=== PATIENT | female | born 1970 | race African-American/Black ===

== ENCOUNTER 2016-11-14 05:52 | Day surgery (SDC) | payer OTHER ==
--- NOTE | 2016-10-31 10:47 | EKG REPORT ---
SEVERITY:- OTHERWISE NORMAL ECG - SINUS RHYTHM LEFT AXIS DEVIATION : Confirmed by: Sasha Vazquez 31-Oct-2016 10:46:42
[2016-10-31 12:17] LABS: HEMATOCRIT 39.3 % (36.0-47.0); HGB HCT DIFFERENCE -0.3; MEAN CORPUSCULAR HEMOGLOBIN 28.2 pg (27.0-33.4); MEAN CORPUSCULAR HGB CONC 33.1 g/dL (32.0-36.0); MEAN CORPUSCULAR VOLUME 85 fl (80-97); RED BLOOD COUNT 4.62 10^6/uL (3.72-5.28); RED CELL DISTRIBUTION WIDTH 14.4 % (11.5-14.0); WHITE BLOOD COUNT 7.6 10^3/uL (4.0-10.5)
[2016-10-31 12:32] LABS: ANION GAP 10 (5-19); BLOOD UREA NITROGEN 11 mg/dL (7-20); CALCIUM 9.5 mg/dL (8.4-10.2); CARBON DIOXIDE 26 mmol/L (22-30); CHLORIDE 106 mmol/L (98-107); CREATININE RESULT 0.74 mg/dL (0.52-1.25); GLUCOSE 69 mg/dL (75-110); POTASSIUM 4.6 mmol/L (3.6-5.0); SODIUM 142.3 mmol/L (137-145)
[~2016-11-14 05:52] MED LIST: CEFAZOLIN 1 GM/D5W RTU 1 GM/50 ML RTUPB IV PRN; CEFAZOLIN SODIUM 1 GM in DEXTROSE 5%-WATER 50 ML IV PRN; DEXTROSE 5%-1/2 NORMAL SALINE 1,000 ML IV PRN
[2016-11-14] MEDS ORDERED: BACITRACIN INJ 50,000 UNIT VIAL ONE (06:38)
[2016-11-14] MEDS ORDERED: LIDOCAINE 0.5% INJ-PF (5 MG/ML) 50 ML SDV ONE (06:38)
[2016-11-14] MEDS ORDERED: BUPIVACAINE HCL 0.25 % INJ/PF (2.5 MG/1 ML) 30 ML VIAL ONE (06:38)
[2016-11-14] MEDS ORDERED: ALBUTEROL SULFATE 0.083% NEB 2.5 MG/3 ML AMPUL NEB ONE (06:39)
[2016-11-14] MEDS ORDERED: FENTANYL CITRATE INJ/PF 250 MCG/5 ML AMPULE ONE (07:49)
[2016-11-14] MEDS ORDERED: MIDAZOLAM 2 MG/2 ML INJ ONE (07:49)
[2016-11-14] MEDS ORDERED: MORPHINE SULFATE 10 MG/ML INJ ONE (07:50)
[2016-11-14] MEDS ORDERED: PROPOFOL INJ 200 MG/20 ML VIAL IV ONE (07:50)
[2016-11-14] MEDS ORDERED: DIPHENHYDRAMINE HCL 50 MG/ML VIAL IV PRN (08:58)
[2016-11-14] MEDS ORDERED: OXYCODONE-ACETAMINOPHEN 5-325 MG TABLET PO PRN ×2 (08:58)
[2016-11-14] MEDS ORDERED: MORPHINE SULFATE 10 MG/ML INJ IV PRN (08:58)
[2016-11-14] MEDS ORDERED: FENTANYL CITRATE INJ/PF 100 MCG/2 ML AMPUL IV PRN ×3 (08:58)
[2016-11-14] MEDS ORDERED: PROMETHAZINE HCL INJ 25 MG/1 ML VIAL IV PRN ×2 (08:58)
[2016-11-14] MEDS ORDERED: MEPERIDINE HCL/PF INJ 25 MG/1 ML DISP.SYRIN IV PRN (08:58)
--- NOTE | 2016-11-14 10:00 | Operative Report ---
Operative Report DATE OF SURGERY: 11/14/16 PREOPERATIVE DIAGNOSIS: #1 symptomatic umbilical hernia. #2 tobacco use disorder. POSTOPERATIVE DIAGNOSIS: #1 symptomatic umbilical hernia. #2 tobacco use disorder. OPERATION: Repair of umbilical hernia with mesh. SURGEON: RENETTA MAC SAMPLE TESTER GRINDER: ELIANA CANDELARIA ANESTHESIA: GA TISSUE REMOVED OR ALTERED: Not applicable COMPLICATIONS: Slightly more than usual ooze. ESTIMATED BLOOD LOSS: 10mL. INTRAOPERATIVE FINDINGS: Of a umbilical hernia defect about 2 cm. Nicely covered with a 6.4 cm Seprafilm mesh. The peritoneum was extremely thin so that it was unusually difficult to ensure coverage of the Seprafilm mesh. Also there was a slight but definite tendency to ooze . For this reason a drain was placed in the subfascial plane just above the fascia with the expectation of removal within 24 hours. I believe this is a reasonable precaution against hematoma formation in that space. Nice tension-free closure of the fascia was accomplished in an oblique direction. PROCEDURE: After obtaining informed consent and going over the procedure with [the patient she was taken to the operating room, she was anesthetized and intubated. The abdomen was prepped and draped in the usual sterile fashion. After the universal timeout, in which it was verified that the patient received IV antibiotic, the procedure commenced. A curvilinear subumbilical incision was made, about 5 cm in length. This is in reference to the palpation and marking of the abdominal wall bulge. Local anesthesia was infiltrated. Incision was made with a [15 blade scalpel]. Dissection now proceeded through the subcutaneous tissue down to the hernia sac and umbilical remnant. The umbilical remnant was transected about half a centimeter deep to the skin. The margins of the hernia were defined dissecting with cautery and scissor dissection as needed. The fascial margins were serially grasped with Omi clamps and elevated. This facilitated [ retroperitoneal dissection]. This was done circumferentially for at least [4 cm , in all directions]. This was facilitated by by moving from each side of the table so as to get optimal access to the other. Hemostasis was now secured in this space using monopolar cautery. The dimensions of the fascial defect were measured out. A mesh was selected of the size, sufficient to cover the hernia defect with at least a 3 cm overlap. The mesh was now deployed flat in the preperitoneal space. It was anchored and kept slightly taut. In this way circumferential control of the mesh was accomplished. The wound was irrigated with antibiotic containing solution. . Fascial closure, was now accomplished using a continuous suture of 0 PDS. This was done with bites 5 mm apart and 5 mm away from the fascial edge. This conforms to best practices for reduction of hernia recurrence. The subcutaneous tissues under it when it were now irrigated with antibiotic containing solution. The subcutaneous tissues were closed using layers of interrupted 3-0 PDS sutures. The skin was closed using a continuous suture of 4 -0 Monocryl. This was reinforced with Steri-Strips over benzoin and a sterile dressing applied. In this case a 15 Baljit drain was inserted through a separate skin incision and tunneled through the fascia and to just above the mesh. It was anchored externally with a 2-0 Prolene suture and a Biopatch applied. The assistant case manager provided retraction, thus facilitating the operative view. Controlled bleeding. The assistant case manager also followed the suturing, thus facilitating accurate suture placement. Sutured skin and applied dressings. Copies dictated operative report to Dr. Renetta Ulloa MD
[2016-11-14] MEDS ORDERED: QUETIAPINE FUMARATE 100 MG TABLET PO PRN (11:41)
[2016-11-14] MEDS ORDERED: ALBUTEROL SULFATE HFA (90 MCG/PUFF) 200 PUFF/8.5 GM MDI IH PRN ×2 (11:41→13:32)
[2016-11-14] MEDS: DEXTROSE 5%-1/2 NORMAL SALINE 1,000 ML IV PRN (12:24)
[2016-11-14] MEDS ORDERED: ESMOLOL HCL INJ/PF 100 MG/10 ML SDV IV ONE (13:06)
[2016-11-14] MEDS ORDERED: METOCLOPRAMIDE HCL INJ/PF 10 MG/2 ML SDV ONE (14:35)
[2016-11-14] MEDS ORDERED: ROCURONIUM BROMIDE INJ 50 MG/5 ML VIAL IV ONE (14:35)
[2016-11-14] MEDS ORDERED: NEOSTIGMINE METHYLSULFATE 10 MG/10 ML VIAL ONE (14:35)
[2016-11-14] MEDS ORDERED: ONDANSETRON HCL INJ/PF 4 MG/2 ML SDV ONE (14:35)
[2016-11-14] MEDS ORDERED: LIDOCAINE 2% INJ-PF (20 MG/ML) 10 ML AMPUL ONE (14:35)
[2016-11-14] MEDS ORDERED: GLYCOPYRROLATE INJ 0.4 MG/2 ML VIAL ONE (14:35)
[2016-11-14] MEDS ORDERED: PHENYLEPHRINE HCL INJ/PF 10 MG/1 ML SDV ONE (14:35)
[2016-11-14] MEDS ORDERED: KETOROLAC TROMETHAMINE 60 MG/2 ML SDV ONE (14:35)
[2016-11-14] MEDS ORDERED: SUCCINYLCHOLINE CHLORIDE INJ 200 MG/10 ML VIAL ONE (14:35)
[2016-11-14] MEDS: MORPHINE SULFATE 10 MG/ML INJ IV PRN ×2 (15:54→22:46)
--- NOTE | 2016-11-14 16:33 | EKG REPORT ---
SEVERITY:- ABNORMAL ECG - SINUS RHYTHM LEFT ANTERIOR FASCICULAR BLOCK : Confirmed by: El Ge MD 14-Nov-2016 16:32:33
[2016-11-14] MEDS: KETOROLAC TROMETHAMINE 10 MG TABLET PO SCH (17:53)
[2016-11-15] MEDS: DEXTROSE 5%-1/2 NORMAL SALINE 1,000 ML IV PRN ×2 (01:20→11:51)
[2016-11-15] MEDS: MORPHINE SULFATE 10 MG/ML INJ IV PRN (06:24)
[2016-11-15] MEDS: OXYCODONE-ACETAMINOPHEN 5-325 MG TABLET PO PRN ×3 (08:28→15:43)
[2016-11-15] MEDS: KETOROLAC TROMETHAMINE 10 MG TABLET PO SCH ×2 (09:48→15:44)
[2016-11-15 16:01] VITALS: BP 119/81
--- NOTE | 2016-11-16 15:14 | DISCHARGE SUMMARY E ---
Discharge Summary NAME: SUE LEMUS : 1970 AGE: 46Y ADMITTED: 11/14/2016 DISCHARGED: 11/15/2016 ADMITTING DIAGNOSES: 1. Symptomatic umbilical hernia. 2. Schizophrenia. 3. Tobacco use disorder. DISCHARGE DIAGNOSES: 1. Symptomatic umbilical hernia. 2. Schizophrenia. 3. Tobacco use disorder. 4. Status post reduction and repair of umbilical hernia with mesh. HISTORY AND PHYSICAL: Please see admission H and P. HOSPITAL COURSE: The patient was admitted and underwent repair of her umbilical hernia with mesh under general anesthesia. Postoperatively she was kept in overnight because of abnormal EKG rhythms noted during surgery. Also, to monitor drainage from Baljit drain left intraoperatively. Her postoperative EKGs proved to be reasonably normal. She was monitored overnight. By 11/15, she had achieved maximal in hospital benefit. The drain was removed and dressing applied. She was discharged with a prescription for Percocet p.r.n. for pain and an abdominal wall binder to be used as much as possible. The plan is for the patient to be evaluated in the office a week after discharge. DICTATING PHYSICIAN: RENETTA GUZMAN M.D. [id number] PHY#: [id number] ID: [id number] JOB#: [id number] ACCT: [id number] cc:RENETTA GUZMAN M.D. >
== END 2016-11-15 16:33 | disposition home or self-care (01) ==
LOC: OROUT 05:52 → 3S 11:27 → OROUT 11-15 16:33
PROVIDERS: ATTEND Surgery
PROC: 0WUF0JZ Supplement Abdominal Wall with Synthetic Substitute, Open Approach (ICD-10-PCS; principal; 2016-11-14 08:00)
DX: K46.9 Unspecified abdominal hernia without obstruction or gangrene (principal); F20.9 Schizophrenia, unspecified; J45.909 Unspecified asthma, uncomplicated; F17.210 Nicotine dependence, cigarettes, uncomplicated; Z79.51 Long term (current) use of inhaled steroids
CPT/HCPCS: 49585; 93005 ×2; 36415; 85027; 81025; 80048; 71020; 93010 ×2; J2250; J3490 ×8; J0690; J1885; J3010; J2765; J2270 ×2; J2370; J0330; J2405; J2704; 750

== ENCOUNTER → 2017-03-06 | Outpatient (CLI) | payer OTHER | LOC: RAD 13:31 | PROVIDERS: ATTEND Surgery | DX: R10.9 Unspecified abdominal pain (principal); N83.201 Unspecified ovarian cyst, right side; K57.30 Diverticulosis of large intestine without perforation or abscess without bleeding | CPT/HCPCS: 74177 ==

== ENCOUNTER 2017-04-07 21:07 | Emergency (ER) | payer OTHER ==
[2017-04-07] MEDS ORDERED: METHYLPREDNISOLONE INJ 125 MG/2 ML SDV IV ONE (21:11)
[2017-04-07] MEDS ORDERED: IPRATROPIUM/ALBUTEROL 0.5-2.5 MG/3 ML AMPUL NEB ONE (21:11)
[2017-04-07] MEDS: MAGNESIUM SULFATE/D5W 100 ML IV SCH ×2 (21:15→21:40)
--- NOTE | 2017-04-07 21:19 | ER Document Report ---
ED Respiratory Problem - General Chief Complaint: Shortness Of Breath Stated Complaint: BREATHING DIFFICULTY Time Seen by Provider: 04/07/17 21:11 Notes: The patient is a 46-year-old female, past medical history asthma, bronchitis, presents with 2 hours of increased shortness of breath and wheezing. She took 2 of her albuterol inhalers with some relief of her symptoms. She is also having right lower chest pain when she coughs. She denies leg swelling, nausea , vomiting, headache, numbness, tingling, hemoptysis or back pain. TRAVEL OUTSIDE OF THE [place] IN LAST 30 DAYS: No - Related Data Allergies/Adverse Reactions: No Known Allergies Allergy (Verified 10/31/16 09:23) Past Medical History - General Information source: Patient - Social History Smoking Status: Current Every Day Smoker Family History: Reviewed & Not Pertinent - Past Medical History Cardiac Medical History: Denies: Hx Coronary Artery Disease, Hx Heart Attack, Hx Hypertension Pulmonary Medical History: Reports: Hx Asthma, Hx Bronchitis Denies: Hx COPD, Hx Pneumonia Neurological Medical History: Denies: Hx Cerebrovascular Accident, Hx Migraine, Hx Seizures Musculoskeltal Medical History: Denies Hx Arthritis Psychiatric Medical History: Reports: Hx Bipolar Disorder, Hx Schizophrenia Past Surgical History: Reports: Hx Section, Hx Gynecologic Surgery - Cervical Conization - Immunizations Hx Diphtheria, Pertussis, Tetanus Vaccination: Yes Hx Pneumococcal Vaccination: 10/29/10 Review of Systems - Review of Systems Notes: REVIEW OF SYSTEMS: CONSTITUTIONAL: -fevers, -chills EENT: -eye pain, -difficulty swallowing, -nasal congestion CARDIOVASCULAR:-chest pain, -syncope. RESPIRATORY: +cough, +SOB GASTROINTESTINAL: -abdominal pain, - nausea, -vomiting, -diarrhea GENITOURINARY: -dysuria, -hematuria MUSCULOSKELETAL: -back pain, -neck pain SKIN: -rash or skin lesions. HEMATOLOGIC: -easy bruising or bleeding. LYMPHATIC: -swollen, enlarged glands. NEUROLOGICAL: -altered mental status or loss of consciousness, -headache, - neurologic symptoms PSYCHIATRIC: -anxiety, -depression. ALL OTHER SYSTEMS REVIEWED AND NEGATIVE. Physical Exam - Notes Notes: PHYSICAL EXAMINATION: GENERAL: Well-appearing, well-nourished and in no acute distress. HEAD: Atraumatic, normocephalic. EYES: Pupils equal round and reactive to light, extraocular movements intact, sclera anicteric, conjunctiva are normal. ENT: nares patent, oropharynx clear without exudates. Moist mucous membranes. NECK: Normal range of motion, supple without lymphadenopathy LUNGS: Wheezing, mild respiratory distress. HEART: Regular rate and rhythm without murmurs ABDOMEN: Soft, nontender, normoactive bowel sounds. No guarding, no rebound. No masses appreciated. EXTREMITIES: Normal range of motion, no pitting or edema. No cyanosis. NEUROLOGICAL: Cranial nerves grossly intact. Normal speech, normal gait. Normal sensory and motor exams. PSYCH: Normal mood, normal affect. SKIN: Warm, Dry, normal turgor, no rashes or lesions noted. Course - Re-evaluation Re-evalutation: After Duoenbs, steroids and magnesium, pt feels much better. No respiratory distress and satting 100% on room air. Repeat lung exam is completely clear. EKG does not show any concerning abnormalities. She is PERC negative. Will D/C home with steroids, a refill of her albuterol and f/u at her PMD. Given strict return precautions and she understands. - EKG Interpretation by [facility] EKG shows normal: Sinus rhythm, Orchard, Intervals, QRS Complexes, ST-T Waves Orchard/QRS: Left axis deviation Discharge - Discharge Clinical Impression: Asthma exacerbation Condition: Stable Disposition: HOME, SELF-CARE Additional Instructions: ASTHMA: You have been diagnosed as having asthma. This is a condition where there is episodic tightness in the bronchial tubes. Allergies, infections, and polluted or cold air may be contributing factors. Emergency treatment of a severe asthma attack may include adrenaline shots , or bronchodilator aerosol. You may feel lightheaded, have a decreased exercise tolerance and a rapid pulse for an hour or two. Rest and get plenty of fluids. Home treatment of asthma requires bronchodilator drugs. These can be administered by injection, inhalation, or by mouth. Antibiotics and corticosteroids may be required for some patients. You should avoid chemical fumes, dusts, pollens, and exercising in very cold or dry air. If you smoke, stop!! If you develop a fever, increased wheezing, chest pain, or severe shortness of breath, you should contact the doctor immediately. STEROID MEDICATION: You have been given an injection of or oral medicine of the cortisone/ steroid class. This medication is used to control inflammation or allergy. Bigg t is usually only given for a short period of time, until the acute process subsides. There are usually no side effects from short-term use of cortisone-like medications. Some persons feel an increased sense of well-being and are not sleepy at bedtime. Long-term use of cortisone medications is best avoided, unless required for a severe condition. If your condition does not remit, or relapses after the course of corticosteroid medication, you should consult your physician. INHALED BRONCHODILATORS: You have received treatment(s) of and/or prescription for an inhaled bronchodilator -- a medication which stimulates the airways in the lung to dilate. This improves the flow of air in asthma, bronchitis, and emphysema. These medicines have some similarity to adrenaline, and can cause similar side effects: shakiness, racing heart, and a sense of nervousness. These side effects decrease with time. Contact your doctor if these side effects are severe. Do not over-use the medicine. Too-frequent use of the inhaler may make it ineffective. Call your doctor if the inhaler is not controlling your symptoms at the prescribed doses. SMOKING: If you smoke, you should stop smoking. The tar and chemicals in cigarette smoke are harmful. Smoking has been shown to cause: emphysema chronic bronchitis lung cancer mouth and throat cancer stomach and pancreas cancer premature aging defects In addition, smoking increases ear and lung infections in children of smokers. USE OF ACETAMINOPHEN: Acetaminophen may be taken for pain relief or fever control. It's much safer than aspirin, offering a wider range of "safe" dosages. It is safe during . Some brand names are Tylenol, Panadol, Datril, Anacin 3, Tempra, and Liquiprin. Acetaminophen can be repeated every four hours. The following are maximum recommended dosages: USE OF ACETAMINOPHEN (Tylenol): Acetaminophen may be taken for pain relief or fever control. It's much safer than aspirin, offering a wider range of "safe" dosages. It is safe during . Some brand names are Tylenol, Panadol, Datril, Anacin 3, Tempra, and Liquiprin. Acetaminophen can be repeated every four hours. The following are maximum recommended dosages: WEIGHT Dose Drops Elixir Chewable( 80mg) (LBS.) drprs=droppers tsp=teaspoon 6 40 mg 0.4 ml (1/2) 6-11 80 mg 0.8 ml (full) tsp 1 tab 12-16 120 mg 1 1/2 drprs 3/4 tsp 1 1/2 tabs 17-23 160 mg 2 drprs 1 tsp 2 tabs 24-30 240 mg 3 drprs 1 1/2 tsp 3 tabs 30-35 320 mg 2 tsp 4 tabs 36-41 360 mg 2 1/4 tsp 4 1/2 tabs 42-47 400 mg 2 1/2 tsp 5 tabs 48-53 480 mg 3 tsp 6 tabs 54-59 520 mg 3 1/4 tsp 6 1/2 tabs 60-64 560 mg 3 1/2 tsp 7 tabs 65-70 600 mg 3 3/4 tsp 7 1/2 tabs 71-76 640 mg 4 tsp 8 tabs 77-82 720 mg 4 1/2 tsp 9 tabs 83-88 800 mg 5 tsp 10 tabs >89 pounds or adults 650 mg to 900 mg Acetaminophen can be repeated every four hours. Maximum dose not to exceed 4000 mg a day. These maximum recommended dosages are slightly higher than the dosages written on the product container, but these dosages are very safe and below the toxic dosage for acetaminophen. FOLLOW-UP CARE: If you have been referred to a physician for follow-up care, call the physician s office for an appointment as you were instructed or within the next two days. If you experience worsening or a significant change in your symptoms, notify the physician immediately or return to the Emergency Department at any time for re-evaluation. Prescriptions: Albuterol Sulfate [Proair HFA Inhalation Aerosol 8.5 gm MDI] 2 puff IH Q4H PRN # 1 mdi PRN Reason: Prednisone [Deltasone 20 mg Tablet] 3 tab PO DAILY 5 Days
[2017-04-07 22:17] VITALS: BP 149/71
--- NOTE | 2017-04-09 09:54 | EKG REPORT ---
SEVERITY:- BORDERLINE ECG - SINUS ARRHYTHMIA, RATE 64-93 PROBABLE LEFT ATRIAL ABNORMALITY LEFT AXIS DEVIATION : Confirmed by: Sasha Vazquez 09-Apr-2017 09:53:57
== END 2017-04-07 22:30 | disposition home or self-care (01) ==
LOC: ER 21:07
DX: J45.901 Unspecified asthma with (acute) exacerbation (principal); R06.02 Shortness of breath; R07.89 Other chest pain; F17.200 Nicotine dependence, unspecified, uncomplicated
CPT/HCPCS: 93005; 94640; 99284; 96375; 96365; 93010; J2930; J3475; J7620

== ENCOUNTER 2018-01-17 22:28 | Emergency (ER) | payer OTHER ==
[2018-01-17] MEDS ORDERED: DIPHENHYDRAMINE HCL 50 MG/ML VIAL IV ONE (23:38)
[2018-01-17] MEDS ORDERED: METOCLOPRAMIDE HCL INJ/PF 10 MG/2 ML SDV IV ONE (23:38)
--- NOTE | 2018-01-17 23:40 | ER Document Report ---
ED General - General Chief Complaint: Weakness Stated Complaint: GENERAL WEAKNESS Time Seen by Provider: 01/17/18 23:37 Mode of Arrival: Ambulatory Information source: Patient Notes: This is a 47-year-old female that presents to the emergency room with a headache , pins and needles to both sides of the face. Patient states she awoke at 3:30 PM with the headache. Symptoms continued at work and she came into the ER. Patient denies any motor focal weakness. Patient states that she does get migraines and tension headaches and has been under a lot of stress lately. TRAVEL OUTSIDE OF THE [place] IN LAST 30 DAYS: No - HPI Onset: This afternoon Onset/Duration: Gradual Quality of pain: Dull Severity: Moderate Pain Level: 2 Associated symptoms: Nausea. denies: Nonproductive cough, Productive cough, Fever, Vomiting, Shortness of breath Exacerbated by: Denies Relieved by: Denies Similar symptoms previously: Yes Recently seen / treated by doctor: No - Related Data Allergies/Adverse Reactions: No Known Allergies Allergy (Verified 01/17/18 22:32) Past Medical History - General Information source: Patient - Social History Smoking Status: Former Smoker Cigarette use (# per day): No Chew tobacco use (# tins/day): No Frequency of alcohol use: None Drug Abuse: None Lives with: Family Family History: Reviewed & Not Pertinent Patient has suicidal ideation: No Patient has homicidal ideation: No - Past Medical History Cardiac Medical History: Denies: Hx Coronary Artery Disease, Hx Heart Attack, Hx Hypertension Pulmonary Medical History: Reports: Hx Asthma, Hx Bronchitis Denies: Hx COPD, Hx Pneumonia Neurological Medical History: Reports: Hx Migraine. Denies: Hx Cerebrovascular Accident, Hx Seizures Renal/ Medical History: Denies: Hx Peritoneal Dialysis Musculoskeltal Medical History: Denies Hx Arthritis Psychiatric Medical History: Reports: Hx Bipolar Disorder, Hx Schizophrenia Past Surgical History: Reports: Hx Section, Hx Gynecologic Surgery - Cervical Conization - Immunizations Hx Diphtheria, Pertussis, Tetanus Vaccination: Yes Hx Pneumococcal Vaccination: 10/29/10 Review of Systems - Review of Systems Constitutional: denies: Chills, Fever EENT: No symptoms reported Cardiovascular: No symptoms reported Respiratory: No symptoms reported Gastrointestinal: No symptoms reported Genitourinary: No symptoms reported Female Genitourinary: No symptoms reported Musculoskeletal: No symptoms reported Skin: No symptoms reported Hematologic/Lymphatic: No symptoms reported Neurological/Psychological: See HPI Physical Exam - Vital signs Vitals: Temp Pulse BP Pulse Ox 98.5 F 68 121/85 99 01/17/18 22:45 01/17/18 22:45 01/17/18 22:45 01/17/18 22:45 Notes: Physical exam: GENERAL: A 7-year-old female, alert and oriented 3, no acute distress HEAD: Atraumatic, normocephalic. EYES: Pupils equal round and reactive to light, extraocular movements intact, sclera anicteric, conjunctiva are normal. ENT: TMs normal, nares patent, oropharynx clear without exudates. Moist mucous membranes. NECK: Normal range of motion, supple without obvious mass or JVD. LUNGS: Breath sounds clear to auscultation bilaterally and equal. No wheezes rales or rhonchi. HEART: Regular rate and rhythm without murmurs, rubs or gallops. ABDOMEN: Soft, normoactive bowel sounds. No tenderness to palpation. No guarding, no rebound. No masses appreciated. EXTREMITIES: Normal range of motion, no pitting or edema. No clubbing or cyanosis. NEUROLOGICAL: Cranial nerves II through XII grossly intact. Normal speech, moving all extremities. 5/5, sensory intact, cerebellar (finger to nose) good, reflexes 2+ and brisk, Romberg negative. PSYCH: Normal mood, normal affect. SKIN: Warm, Dry, normal turgor, no rashes or lesions noted. Course - Re-evaluation Re-evalutation: 01/18/18 02:05 On reassessment, patient's headache is resolved. She was given IV Reglan and IV Benadryl. CT of the head shows no acute process. Reassessment of her neurologic status shows nonfocal exam. - Vital Signs Vital signs: Temp Pulse Resp BP Pulse Ox 98.5 F 71 17 123/79 98 01/17/18 22:45 01/18/18 00:00 01/18/18 00:00 01/18/18 00:00 01/18/18 00:00 - Laboratory Result Diagrams: 01/18/18 00:06 01/18/18 00:06 Laboratory results interpreted by me: 01/18/18 01/18/18 00:06 00:06 Seg Neutrophils % 31.8 L Lymphocytes % 53.4 H Chloride 110 H - Diagnostic Test Radiology reviewed: Image reviewed, Reports reviewed - CT of the head shows no - EKG Interpretation by Me Rate: Normal Rhythm: NSR - EKG shows normal sinus rhythm with a ventricular rate of 59, no acute ST-T wave changes Discharge - Discharge Clinical Impression: Complicated migraine Condition: Stable Disposition: HOME, SELF-CARE Instructions: Migraine Headache ([facility]) Additional Instructions: Thank you for choosing [facility] for your care. The examination and treatment you have received in the Emergency Department today has been rendered on an emergency basis only and is not intended to be a substitute for complete medical care. You should contact your doctor as it is important that she/he examine you for any new or remaining problems. If given a copy of any lab tests or radiology reports, please bring them with you when you see your physician. If your problem worsens or new symptoms appear and you are unable to arrange prompt follow-up care, return to the Emergency Department. Specific signs to look out for: Weakness, problems with your speech, loss of sensation or any concerns or getting worse. Any other instructions: Continue current medicines and follow-up with your primary care doctor. If you do not have a primary care doctor or you are unable to get an appointment during that time, you can try one of the doctor's below. These are internal medicine doctor's that have admitting priveledges to the hospital ( they will see you both in the office as well as in this hospital if you are ever hospitalized here). Dr. Magy Trejo [address], [place] [address] [phone] Dr Huff Address: [address] [place] [address] Dr Patrick Address: [address] [place] [address] Referrals: ZENA COYLE PA-C [Primary Care Provider] - Follow up in 3-5 days
[2018-01-18 00:19] LABS: ABSOLUTE BASOPHILS # (AUTO) 0.1 10^3/uL (0.0-0.2); ABSOLUTE EOSINOPHILS # (AUTO) 0.2 10^3/uL (0.0-0.6); ABSOLUTE LYMPHOCYTES (AUTO) 3.1 10^3/uL (0.5-4.7); ABSOLUTE MONOCYTES (AUTO) 0.6 10^3/uL (0.1-1.4); ABSOLUTE NEUT (AUTO) 1.8 10^3/uL (1.7-8.2); BASOPHILS % (AUTO) 1.7 % (0-2); EOSINOPHILS % (AUTO) 3.1 % (0-6); HEMOGLOBIN 13.1 g/dL (12.0-15.5); LYMPHOCYTES % (AUTO) 53.4 % (13-45); MEAN CORPUSCULAR HGB CONC 32.8 g/dL (32.0-36.0); MEAN CORPUSCULAR VOLUME 88 fl (80-97); PLATELET COUNT 267 10^3/uL (150-450); RED BLOOD COUNT 4.52 10^6/uL (3.72-5.28); RED CELL DISTRIBUTION WIDTH 13.9 % (11.5-14.0); SEGMENTED NEUTROPHILS % (AUTO) 31.8 % (42-78); TOTAL CELLS COUNTED % (AUTO) 100 %; WHITE BLOOD COUNT 5.8 10^3/uL (4.0-10.5)
[2018-01-18 00:48] VITALS: BP 123/79
[2018-01-18 00:48] LABS: ALANINE AMINOTRANSFERASE 28 U/L (9-52); ALBUMIN 3.8 g/dL (3.5-5.0); ALKALINE PHOSPHATASE 61 U/L (38-126); ANION GAP 5 (5-19); ASPARTATE AMINO TRANSFERASE 21 U/L (14-36); BILIRUBIN,DIRECT 0.2 mg/dL (0.0-0.4); BILIRUBIN,TOTAL 0.2 mg/dL (0.2-1.3); BLOOD UREA NITROGEN 14 mg/dL (7-20); CALCIUM 9.7 mg/dL (8.4-10.2); CARBON DIOXIDE 29 mmol/L (22-30); CHLORIDE 110 mmol/L (98-107); GLUCOSE 81 mg/dL (75-110); POTASSIUM 4.9 mmol/L (3.6-5.0); SODIUM 144.4 mmol/L (137-145); TOTAL PROTEIN 6.8 g/dL (6.3-8.2)
--- NOTE | 2018-01-18 01:44 | RADIOLOGY REPORT (SQ) ---
EXAM DESCRIPTION: CT HEAD WITHOUT CLINICAL HISTORY: Headache COMPARISON: 03/19/2016 TECHNIQUE: Axial CT of the head obtained from the skull apex to the skull base without contrast. FINDINGS: No acute intracranial hemorrhage identified. No mass, mass effect, shift of the midline, abnormal extra-axial fluid collection or CT evidence of acute ischemic change identified. The ventricular system is unremarkable. No acute abnormalities of the supratentorial white matter, basal ganglia, cerebellum, or brainstem. The visualized paranasal sinuses and the mastoids are clear. No skull fracture identified. Visualized orbits and globes are unremarkable. DLP: 1292.19 mGy-cm IMPRESSION: 1. No acute intracranial abnormality identified. This exam was performed according to our departmental dose-optimization program, which includes automated exposure control, adjustment of the mA and/or kV according to patient size and/or use of iterative reconstruction technique.
--- NOTE | 2018-01-18 22:21 | EKG REPORT ---
SEVERITY:- OTHERWISE NORMAL ECG - SINUS RHYTHM ATRIAL PREMATURE COMPLEX BORDERLINE LEFT AXIS DEVIATION : Confirmed by: Sasha Vazquez 18-Jan-2018 22:20:12
== END 2018-01-18 02:14 | disposition home or self-care (01) ==
LOC: ER 22:28
DX: G43.109 Migraine with aura, not intractable, without status migrainosus (principal); R53.1 Weakness; R11.0 Nausea; Z87.891 Personal history of nicotine dependence
CPT/HCPCS: 93005; 99284; 96374; 96375; 36415; 85025; 80053; 70450; 93010; J1200; J2765

== ENCOUNTER 2018-04-02 20:58 | Emergency (ER) | payer OTHER ==
--- NOTE | 2018-04-02 22:50 | ER Document Report ---
ED General - General Chief Complaint: Abdominal Pain Stated Complaint: PAIN IN UMBILICA AREA Time Seen by Provider: 04/02/18 22:41 Notes: Patient is a 47-year-old female presents with complaint of having a little bit pain in the periumbilical area. She has previous hernia repair with mesh over this area. She says approximately a week and after she is at work and felt a small pop in the area. Since then she has had some soreness. She says she has had some nausea but no vomiting. She has had normal bowel movements without blood. She says she is able stand and walk around and move without any difficulty but does have some increased pain when she goes to lift something. She denies feeling a bulge or lump over the periumbilical area. She denies any fevers. She has no other complaints at this time. TRAVEL OUTSIDE OF THE [place] IN LAST 30 DAYS: No - Related Data Allergies/Adverse Reactions: No Known Allergies Allergy (Verified 01/17/18 22:32) Past Medical History - Social History Smoking Status: Unknown if Ever Smoked Frequency of alcohol use: None Drug Abuse: None Family History: Reviewed & Not Pertinent Patient has suicidal ideation: No Patient has homicidal ideation: No - Past Medical History Cardiac Medical History: Denies: Hx Coronary Artery Disease, Hx Heart Attack, Hx Hypertension Pulmonary Medical History: Reports: Hx Asthma, Hx Bronchitis Denies: Hx COPD, Hx Pneumonia Neurological Medical History: Reports: Hx Migraine. Denies: Hx Cerebrovascular Accident, Hx Seizures Renal/ Medical History: Denies: Hx Peritoneal Dialysis Musculoskeltal Medical History: Denies Hx Arthritis Psychiatric Medical History: Reports: Hx Bipolar Disorder, Hx Schizophrenia Past Surgical History: Reports: Hx Section, Hx Gynecologic Surgery - Cervical Conization - Immunizations Hx Diphtheria, Pertussis, Tetanus Vaccination: Yes Hx Pneumococcal Vaccination: 10/29/10 Review of Systems - Review of Systems Notes: My Normal Review Basic REVIEW OF SYSTEMS: CONSTITUTIONAL : Denies fever, chills, or sweats. Denies recent illness. CARDIOVASCULAR: Denies chest pain. RESPIRATORY: Denies cough, cold, or chest congestion. Denies shortness of breath, difficulty breathing, or wheezing. GASTROINTESTINAL: Mild abdominal pain. some nausea GENITOURINARY: Denies difficulty urinating, painful urination, burning, frequency, or blood in urine. MUSCULOSKELETAL: Denies neck or back pain or joint pain or swelling. SKIN: Denies rash or skin lesions. NEUROLOGICAL: Denies altered mental status or loss of consciousness. Denies headache. Denies weakness or paralysis or loss of use of either side. Denies problems with gait or speech. Denies sensory or motor loss. ALL OTHER SYSTEMS REVIEWED AND NEGATIVE. Physical Exam - Vital signs Vitals: Temp Pulse Resp BP Pulse Ox 98.9 F 96 18 118/85 98 04/02/18 21:03 04/02/18 21:03 04/02/18 21:03 04/02/18 21:03 04/02/18 21:03 - Notes Notes: General Appearance: Well nourished, alert, cooperative, no acute distress, no obvious discomfort. Appearing. Patient is moving around the bed without difficulty. She is able to lay down flat and sit up without significant pain. Vitals: reviewed, See vital signs table. Lungs: No wheezing, No rales, No rhonci, No accessory muscle use, good air exchange bilaterally. Heart: Normal rate, Regular rythm, No murmur, no rub Abdomen: Normal BS, soft, No rigidity, patient does have some mild abdominal tenderness on the periumbilical area. I do not feel any defect or bulge or hernia type mass with deep palpation over the abdomen., No guarding, no rebound , no abdominal masses, no organomegaly Extremities: strength 5/5 in all extremities, good pulses in all extremities, no swelling or tenderness in the extremities, no edema. Skin: warm, dry, appropriate color, no rash Neuro: speech clear, oriented x 3, normal affect, responds appropriately to questions. Course - Re-evaluation Re-evalutation: 04/03/18 05:53 Patient's exam is not consistent with that of a hernia. I suspect most likely she probably has scar tissue around the mesh had most likely tore when she was lifting something heavy at work a week ago when she first initially felt the pain. She has had some nausea but no vomiting. She says she otherwise feels well says she will just follow-up closely with her doctor. She is just requesting 2 days off to rest. I told her I would give her 2 days off. I informed her that I still have a low threshold to return to ER immediately if she starts vomiting, having fevers, having any blood in her stool or difficulty having bowel movements, or if she feels increasing pain in her abdomen or feels a bulge or mass in her abdomen. Patient agrees with plan will be discharged home. Dictation of this chart was performed using voice recognition software; therefore, there may be some unintended grammatical errors. - Vital Signs Vital signs: Temp Pulse Resp BP Pulse Ox 98.7 F 69 17 123/83 100 04/02/18 22:55 04/02/18 22:55 04/02/18 22:55 04/02/18 22:55 04/02/18 22:55 Discharge - Discharge Clinical Impression: Abdominal pain Qualifiers: Abdominal location: periumbilical Qualified Code(s): R10.33 - Periumbilical pain Condition: Good Disposition: HOME, SELF-CARE Additional Instructions: I do not feel a hernia on exam at this time. Please be aware that a hernia can still form despite you having a mesh in place. Signs of a hernia are worsening pain, a lump felt in the abdomen, vomiting, blood in stool, or fevers. If you have any of these mentioned symptoms you must return to the ER immediately as these are signs of recurrence of a hernia that is incarcerated. A incarcerated hernia can result in bowel and cause you to become very sick or . please rest then next 2 days and do not lift anything heavy. Forms: Return to Work Referrals: ZENA COYLE PA-C [Primary Care Provider] - 04/04/18
[2018-04-02 22:55] VITALS: BP 123/83
== END 2018-04-02 22:55 | disposition home or self-care (01) ==
LOC: ER 20:58
DX: R10.33 Periumbilical pain (principal); R11.0 Nausea; J45.909 Unspecified asthma, uncomplicated; Z98.890 Other specified postprocedural states; Z87.19 Personal history of other diseases of the digestive system
CPT/HCPCS: 99283

== ENCOUNTER 2018-04-17 18:45 | Emergency (ER) | payer OTHER ==
[2018-04-17 18:59] VITALS: BP 115/72
[2018-04-17] MEDS ORDERED: NAPROXEN 250 MG TABLET PO ONE (19:54)
[2018-04-17] MEDS ORDERED: METHOCARBAMOL 500 MG TABLET PO ONE (19:54)
--- NOTE | 2018-04-17 20:00 | ER Document Report ---
ED General - General Chief Complaint: Chest Wall Pain Stated Complaint: RIGHT SIDE RIB PAIN Time Seen by Provider: 04/17/18 19:52 Notes: The patient is a 47-year-old female, past medical history asthma, schizophrenia , bipolar, presents with right upper and lateral chest wall pain that started after she lifted heavy groceries. She feels like she pulled a muscle. She tried Tylenol before calling 911. Chest pain improves when she is at rest and worsens with movement and palpation. She denies shortness of breath, wheezing, fevers, hemoptysis, OCP use, drug use, rash or back pain. TRAVEL OUTSIDE OF THE [place] IN LAST 30 DAYS: No - Related Data Allergies/Adverse Reactions: No Known Allergies Allergy (Verified 04/17/18 18:46) Past Medical History - General Information source: Patient - Social History Smoking Status: Current Some Day Smoker Chew tobacco use (# tins/day): No Frequency of alcohol use: None Drug Abuse: None Family History: Reviewed & Not Pertinent Patient has suicidal ideation: No Patient has homicidal ideation: No - Past Medical History Cardiac Medical History: Denies: Hx Coronary Artery Disease, Hx Heart Attack, Hx Hypertension Pulmonary Medical History: Reports: Hx Asthma, Hx Bronchitis Denies: Hx COPD, Hx Pneumonia Neurological Medical History: Reports: Hx Migraine. Denies: Hx Cerebrovascular Accident, Hx Seizures Renal/ Medical History: Denies: Hx Peritoneal Dialysis Musculoskeltal Medical History: Denies Hx Arthritis Psychiatric Medical History: Reports: Hx Bipolar Disorder, Hx Schizophrenia Past Surgical History: Reports: Hx Section, Hx Gynecologic Surgery - Cervical Conization - Immunizations Hx Diphtheria, Pertussis, Tetanus Vaccination: Yes Hx Pneumococcal Vaccination: 10/29/10 Review of Systems - Review of Systems Notes: REVIEW OF SYSTEMS: CONSTITUTIONAL: -fevers, -chills EENT: -eye pain, -difficulty swallowing, -nasal congestion CARDIOVASCULAR: +chest wall pain, -syncope. RESPIRATORY: -cough, -SOB GASTROINTESTINAL: -abdominal pain, -nausea, -vomiting, -diarrhea GENITOURINARY: -dysuria, -hematuria MUSCULOSKELETAL: -back pain, -neck pain SKIN: -rash or skin lesions. HEMATOLOGIC: -easy bruising or bleeding. LYMPHATIC: -swollen, enlarged glands. NEUROLOGICAL: -altered mental status or loss of consciousness, -headache, - neurologic symptoms PSYCHIATRIC: -anxiety, -depression. ALL OTHER SYSTEMS REVIEWED AND NEGATIVE. Physical Exam - Vital signs Vitals: Temp Pulse Resp BP Pulse Ox 98.8 F 68 16 115/72 99 04/17/18 18:57 04/17/18 18:57 04/17/18 18:57 04/17/18 18:57 04/17/18 18:57 - Notes Notes: PHYSICAL EXAMINATION: GENERAL: Well-appearing, well-nourished and in no acute distress. Comfortable playing on phone in lobby. Begins to cry once in room. HEAD: Atraumatic, normocephalic. EYES: Pupils equal round and reactive to light, extraocular movements intact, sclera anicteric, conjunctiva are normal. ENT: nares patent, oropharynx clear without exudates. Moist mucous membranes. NECK: Normal range of motion, supple without lymphadenopathy LUNGS: Breath sounds clear to auscultation bilaterally and equal. No wheezes rales or rhonchi. HEART: Regular rate and rhythm without murmurs CHEST WALL: Tenderness over right upper and lateral chest wall. ABDOMEN: Soft, nontender, normoactive bowel sounds. No guarding, no rebound. No masses appreciated. EXTREMITIES: Normal range of motion, no pitting or edema. No cyanosis. NEUROLOGICAL: Cranial nerves grossly intact. Normal speech, normal gait. Normal sensory and motor exams. PSYCH: Tearful. SKIN: Warm, Dry, normal turgor, no rashes or lesions noted. Course - Re-evaluation Re-evalutation: Patient with chest wall strain after lifting heavy groceries. No signs of pneumothorax and symptoms are atypical for PE, ACS or aortic dissection at this time. Instructed her about using anti-inflammatories, heating pads and Robaxin as needed for any muscle spasms. She will follow-up with her primary care physician. - Vital Signs Vital signs: Temp Pulse Resp BP Pulse Ox 98.8 F 68 16 115/72 99 04/17/18 18:57 04/17/18 18:57 04/17/18 18:57 04/17/18 18:57 04/17/18 18:57 - Diagnostic Test Radiology reviewed: Image reviewed, Reports reviewed Radiology results interpreted by me: CXR: NAD Discharge - Discharge Clinical Impression: Chest wall pain Condition: Stable Disposition: HOME, SELF-CARE Additional Instructions: CHEST PAIN OF UNCLEAR CAUSE: The exact cause of your chest pain isn't clear. Fortunately, there is no evidence of a dangerous medical condition. Further testing may be required to find the source of the pain. Most often, we find that this pain is coming from the chest wall -- the muscles or rib joints in the chest. But chest pain can come from the lung and lung lining, the esophagus, the heart valves or heart lining, and even the stomach or gallbladder. Rest. Eat lightly until the pain is gone. We may prescribe medicine for pain and inflammation. You should call the physician immediately if the pain radiates to the shoulder, jaw or arms; if you start to run a fever or develop a cough; or if you develop shortness of breath, or other new or alarming symptoms. NORMAL EXAM AND WORKUP: At this time, your examination and workup show no significant abnormality. No significant abnormal physical findings were noted. All laboratory, EKG, and imaging (x-ray, CT scans, ultrasound) studies that were ordered show no significant abnormality. Although your examination and all studies that were ordered showed no significant abnormal finding, there are no examinations and no studies that are 100% accurate. There is always the possibility that some abnormality could exist and not be detected with physical examination or within the limits and capabilities of laboratory and other studies. You should return or follow up as you were instructed on your visit today for further evaluation if your symptoms do not resolve. CHEST WALL PAIN: Your chest pain may be coming from the chest wall. This is often caused by straining the muscles or joints in the chest during physical activity, direct trauma, coughing, or vigorous vomiting. Persons with arthritis are especially prone to this type of pain, due to inflammation of the cartilage joints near the breast bone. Occasionally, no cause can be found. Rest from strenuous physical activity. This kind of chest pain is usually made worse by movement of the chest. Depending on the symptoms, we may prescribe medicine for pain, muscle relaxation, and antiinflammatory effects. If the pain is new, and seems to be due to muscle strain, cold packs can help. Otherwise, apply gentle warmth to the painful area for 15 minutes every hour or two. You should call contact the doctor immediately if things change. Further evaluation is needed if you develop a fever or cough, if the nature of the pain changes, or if you become short of breath. FOLLOW-UP CARE: If you have been referred to a physician for follow-up care, call the physician s office for an appointment as you were instructed or within the next two days. If you experience worsening or a significant change in your symptoms, notify the physician immediately or return to the Emergency Department at any time for re-evaluation. Prescriptions: Methocarbamol [Robaxin 500 mg Tablet] 500 mg PO Q4H PRN #10 tablet PRN Reason: Naproxen [Naprosyn 250 mg Tablet] 500 mg PO Q12H PRN #14 tablet PRN Reason: Referrals: ZENA COYLE PA-C [Primary Care Provider] - Follow up as needed
--- NOTE | 2018-04-17 20:42 | RADIOLOGY REPORT (SQ) ---
EXAM DESCRIPTION: CHEST 2 VIEWS COMPLETED DATE/TIME: 04/17/2018 8:11 pm REASON FOR STUDY: chest pain COMPARISON: None. EXAM PARAMETERS: NUMBER OF VIEWS: two views TECHNIQUE: Digital Frontal and Lateral radiographic views of the chest acquired. RADIATION DOSE: NA LIMITATIONS: none FINDINGS: LUNGS AND PLEURA: No opacities, masses or pneumothorax. No pleural effusion. MEDIASTINUM AND HILAR STRUCTURES: No masses or contour abnormalities. HEART AND VASCULAR STRUCTURES: Heart normal size. No evidence for failure. BONES: No acute findings. HARDWARE: None in the chest. OTHER: No other significant finding. IMPRESSION: NO ACUTE RADIOGRAPHIC FINDING IN THE CHEST. TECHNICAL DOCUMENTATION: JOB ID: [id number] [employer]- All Rights Reserved Reading location - IP/workstation name: [email or web address]
== END 2018-04-17 20:43 | disposition home or self-care (01) ==
LOC: ER 18:45
DX: R07.89 Other chest pain (principal); X50.0XXA Overexertion from strenuous movement or load, initial encounter; J45.909 Unspecified asthma, uncomplicated; F17.200 Nicotine dependence, unspecified, uncomplicated
CPT/HCPCS: 71046; 99283

== ENCOUNTER 2018-12-01 19:03 | Emergency (ER) | payer OTHER ==
[2018-12-01 19:20] VITALS: BP 132/94
[2018-12-01] MEDS ORDERED: ONDANSETRON 4 MG TAB.RAPDIS PO ONE (19:36)
--- NOTE | 2018-12-01 19:53 | ER Document Report ---
ED Flu Like - General Chief Complaint: Flu Symptoms Stated Complaint: FLU LIKE SYMPTOMS Time Seen by Provider: 12/01/18 19:28 Primary Care Provider: ZENA COYLE PA-C [Primary Care Provider] - Follow up in 3-5 days Mode of Arrival: Ambulatory Information source: Patient Notes: 48-year-old female presented to ED for complaint of headache sinus pain body aches nausea and vomiting and no appetite since yesterday. She states she was take care of her grandchild yesterday and found out that the daughter and grandchild had flu and has been being treated for flu. She states she came to the emergency room to ensure that she does not have flu. She is afebrile and has not had a fever. Patient states that her last menstrual period started today. TRAVEL OUTSIDE OF THE [place] IN LAST 30 DAYS: No - HPI Onset: Yesterday Timing/Duration: Persistent Quality of pain: Achy Severity: Moderate Pain Level: 3 Associated symptoms: Body/muscle aches, Nonproductive cough, Nausea, Vomiting, Rhinnorhea, Sinus pain/drainage. denies: Fever Similar symptoms previously: Yes Recently seen / treated by doctor: No - Related Data Allergies/Adverse Reactions: No Known Allergies Allergy (Verified 04/17/18 18:46) Past Medical History - General Information source: Patient - Social History Smoking Status: Never Smoker Frequency of alcohol use: None Drug Abuse: None Lives with: Family Family History: Reviewed & Not Pertinent Patient has suicidal ideation: No Patient has homicidal ideation: No - Past Medical History Cardiac Medical History: Reports: None Pulmonary Medical History: Reports: Hx Asthma, Hx Bronchitis EENT Medical History: Reports: None Neurological Medical History: Reports: Hx Migraine Endocrine Medical History: Reports: None Renal/ Medical History: Reports: None Malignancy Medical History: Reports: None GI Medical History: Reports: None Musculoskeletal Medical History: Reports None Skin Medical History: Reports None Psychiatric Medical History: Reports: Hx Bipolar Disorder, Hx Schizophrenia Traumatic Medical History: Reports: None Infectious Medical History: Reports: None Past Surgical History: Reports: Hx Section, Hx Gynecologic Surgery - Cervical Conization - Immunizations Hx Diphtheria, Pertussis, Tetanus Vaccination: Yes Hx Pneumococcal Vaccination: 10/29/10 Review of Systems - Review of Systems Constitutional: No symptoms reported, Recent illness EENT: Sinus pressure, Sinus discharge Cardiovascular: No symptoms reported Respiratory: Cough Gastrointestinal: Nausea, Vomiting, Poor appetite Genitourinary: No symptoms reported Female Genitourinary: No symptoms reported Musculoskeletal: Muscle pain - Body aches Skin: No symptoms reported Hematologic/Lymphatic: No symptoms reported Neurological/Psychological: No symptoms reported -: Yes All other systems reviewed and negative Physical Exam - Vital signs Vitals: Temp Pulse Resp BP Pulse Ox 98.8 F 86 17 132/94 H 97 12/01/18 19:17 12/01/18 19:17 12/01/18 19:17 12/01/18 19:17 12/01/18 19:17 Interpretation: Normal - General General appearance: Appears well, Alert - HEENT Head: Normocephalic, Atraumatic Eyes: Normal Pupils: PERRL Ears: Normal External canal: Normal Tympanic membrane: Normal Sinus: Normal Nasal: Purulent discharge Mouth/Lips: Normal Pharynx: Post nasal drainage Neck: Normal - Respiratory Respiratory status: No respiratory distress Chest status: Nontender Breath sounds: Nonproductive cough Chest palpation: Normal - Cardiovascular Rhythm: Regular Heart sounds: Normal auscultation Murmur: No - Abdominal Inspection: Normal Distension: No distension Bowel sounds: Normal Tenderness: Nontender Organomegaly: No organomegaly - Back Back: Normal, Nontender - Extremities General upper extremity: Normal inspection, Nontender, Normal color, Normal ROM, Normal temperature General lower extremity: Normal inspection, Nontender, Normal color, Normal ROM, Normal temperature, Normal weight bearing. 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 She did have an emesis in the emergency room. She was treated with Zofran 8 mg ODT. Promptly after receiving the medics then she did vomit in the ED. She was then treated with Phenergan p.o. Her influenza was positive for influenza A. She was instructed to stay home from work until all symptoms are relieved and she is afebrile for more than 24 hours. She was given a work note for a week off. She was instructed to follow-up with her primary doctor. She verbalized understanding and agreement agreement with treatment plan. She did verbalize understanding to increase p.o. fluids. - Vital Signs Vital signs: Temp Pulse Resp BP Pulse Ox 98.8 F 86 17 132/94 H 97 12/01/18 19:17 12/01/18 19:17 12/01/18 19:17 12/01/18 19:17 12/01/18 19:17 Discharge - Discharge Clinical Impression: Influenza Nausea & vomiting Qualifiers: Vomiting type: unspecified Vomiting Intractability: non-intractable Qualified Code(s): R11.2 - Nausea with vomiting, unspecified Condition: Stable Disposition: HOME, SELF-CARE Additional Instructions: INFLUENZA: The physician feels that you have influenza -- the "flu". Influenza is an infection caused by a virus. Symptoms include generalized aching, fever, headache, dry cough, and fatigue. Some patients with the flu also have nausea, vomiting, and diarrhea. The fever and aches usually last two to four days, with the cough persisting another one to two weeks. Treatment of the flu, for the most part, is simply treatment of symptoms. Rest, drink plenty of fluids, and use acetaminophen for fever and aches. Do not take aspirin. There is an anti-viral medication, called Tamiflu, which may help in "type A" flu, but it's not helpful in every case of flu, and only works if started within the first 24 - 48 hours of the start of symptoms. The physician will determine whether this medication can help you. To prevent spread of the virus, use good handwashing. Shared toys should be cleaned with disinfectant. Clean the toilets, sinks, and counter surfaces in bathrooms. Launder clothing in hot water. What are conditions that should receive medical attention? The development of difficulty breathing. Lip color changes to blue or purple. Persistent vomiting and unable to keep liquids down with signs of dehydration such as: dizziness when standing, unable to urinate, or if child/infant is crying no tears are noticed. Is less responsive than normal or becomes confused. How do I decrease the spread of flu in my home? Taking care of the sick patient at home: Keep the sick person in a room separate from the common areas of the house. Keep the "sickroom" door closed. If the person with the flu needs to leave the home, they should cover their nose/mouth when coughing or sneezing and wear a disposable (surgical) mask if available. These masks may be available at your local pharmacy, medical supply and hardware store. If the sick person is in common areas of the house, have them wear a surgical mask. If possible, have the sick person use a separate bathroom that should be cleaned daily with a household disinfectant. If you are the caregiver: Avoid being face to face with the sick adult person as much as possible. Try to stay at least 6 feet away and wear a disposable surgical mask when possible. When holding small children who are sick, place their chin on your shoulder so that they will not cough in your face. Wash your hands after you touch the sick person or handle their tissues and laundry. Wear a mask if you leave home, as you may be infected from taking care of someone and not know it yet. Watch yourself and others in the home for flu symptoms and contact your doctor if symptoms occur. NOTE: Antiviral medication used to reduce the symptoms of the flu works only if taken within 48 hours, and best within 24 hours of symptom onset. Household Cleaning, laundry and waste disposal: Tissues and other disposable items used by the sick person should be thrown away in the trash. Wash your hands after touching these used items. No special waste disposal is required. Keep surfaces (especially bedside tables, bathroom surfaces, and toys for children) clean by wiping them down with a safe household disinfectant according to the directions on the product label. Per Center for Disease Control advice, most people will not receive testing to confirm flu. Also based on the person's health history and onset of symptoms, not all patients will receive prescriptions for antiviral medications. If you have questions related to this, please ask your healthcare provider. For more information, you can call the Centers for Disease Control and Prevention (CDC) Hotline at 3-723-ZRG-INFO This line is available in Khmer and Belarusian, 24 hours a day, 7 days a week. Or www.[employer] or www.cdc.gov Flu-Like Illness Home Instructions: The influenza virus infection can cause a wide rage of symptoms, including: Fever, cough, sore throat, body aches, headaches, chills, fatigue, with some patients reporting diarrhea and vomiting Like seasonal influenza A, H1N1 ("swine flu")in humans can vary in severity from mild to severe Severe illness with pneumonia, respiratory failure and even is possible Certain groups might be more likely to develop a severe illness from H1N1 infection. Sometimes bacterial infections may occur at the same time as or after infection with influenza viruses and lead to pneumonias, ear infections, or sinus infections. How Flu Spreads The main way that influenza viruses spread is through respiratory droplets o f coughs and sneezes. This can happen when someone with the infection coughs or sneezes and the particles fly through the air and land on other people and surfaces. If the person covers their mouth and nose with their hand but does not wash their hands immediately, then these germs are passed onto the next object that they touch. People with Influenza A or suspected H1N1 (swine flu) who are cared for at home should: Check with their doctor about any special care that they might need if they are or have a health condition such as diabetes, heart disease, asthma or emphysema. Also, limit caregiver to one (if possible). women or those with chronic health conditions should not take care of the flu patient unless necessary. Check with their doctor about whether or not medications are needed that may lessen the symptoms of the flu. Stay at home until 24 hours fever free without the use of fever reducing medication. Get plenty of rest and avoid other healthy people in your home. Drink plenty of clear liquids to keep from getting dehydrated. Take medications like Tylenol (Acetaminophen), Advil/Motrin/Nuprin (Ibuprofe n) or Aleve (Naproxen) for fevers and aches. All children under the age of 18 years of age should not take aspirin or products containing aspirin (e.g. Pepto Bismol), as this can cause a rare serious illness called Xi Syndrome. Over the counter medications for flu and colds may help, but it is very important to follow the package directions. Remember that the medicine may help the symptoms, but it will not help prevent others from getting sick if they are around you. Cover coughs and sneezes using your bent arm. Clean hands with soap and water or an alcohol-based hand rub often, especially after using tissues to cough or sneeze. Encourage hand washing frequently for all people living in the home! The sick person should not have visitors other than caregivers. Encourage concerned loved ones to call instead of visit. Avoid close contact with others-do not go to work or school while sick. USE OF ACETAMINOPHEN (Tylenol): Acetaminophen may be taken for pain relief or fever control. It's much safer than aspirin, offering a wider range of "safe" dosages. It is safe during . Some brand names are Tylenol, Panadol, Datril, Anacin 3, Tempra, and Liquiprin. Acetaminophen can be repeated every four hours. The following are maximum recommended dosages: WEIGHT Dose Drops Elixir Chewable(80mg) (LBS.) drprs=droppers tsp=teaspoon 6 40 mg 0.4 ml (1/2) 6-11 80 mg 0.8 ml (full) tsp 1 tab 12-16 120 mg 1 1/2 drprs 3/4 tsp 1 1/2 tabs 17-23 160 mg 2 drprs 1 tsp 2 tabs 24-30 240 mg 3 drprs 1 1/2 tsp 3 tabs 30-35 320 mg 2 tsp 4 tabs 36-41 360 mg 2 1/4 tsp 4 1/2 tabs 42-47 400 mg 2 1/2 tsp 5 tabs 48-53 480 mg 3 tsp 6 tabs 54-59 520 mg 3 1/4 tsp 6 1/2 tabs 60-64 560 mg 3 1/2 tsp 7 tabs 65-70 600 mg 3 3/4 tsp 7 1/2 tabs 71-76 640 mg 4 tsp 8 tabs 77-82 720 mg 4 1/2 tsp 9 tabs 83-88 800 mg 5 tsp 10 tabs >89 pounds or adults 650 mg to 900 mg Acetaminophen can be repeated every four hours. Maximum dose not to exceed 4000 mg a day. These maximum recommended dosages are slightly higher than the dosages written on the product container, but these dosages are very safe and below the toxic dosage for acetaminophen. VOMITING: Vomiting (or nausea without vomiting) can be caused by many other different problems. It can mean that something's wrong with the stomach, such as ulcers or inflammation or the intestinal tract, such as appendicitis. But it can also be a symptom of a problem that has nothing to do with the stomach or intestines. Vomiting is common with severe headaches, earaches, tonsillitis, and kidney infections, etc. We see it with pneumonia or heart attacks. Drugs can cause nausea and vomiting. Many abdominal problems cause vomiting; for example, gallstones, kidney stones, pancreatitis, and intestinal obstruction (blocked bowels). In most cases, curing the vomiting depends on fixing the problem that caused it. For temporary relief, we may use an anti-nausea medicine. For home use, we can prescribe suppositories, chewable pills, pills that dissolve in the mouth, or liquid anti-nausea drugs. If the vomiting seems to be caused by a problem in the stomach, acid-suppressing drugs may be prescribed as well. It's important to avoid dehydration. Sip small amounts of clear liquids (soft drinks, tea, broth, etc) . Try to take fluids frequently even if you are vomiting to prevent dehydration. Take increasing amounts of fluid and when li quids are being consumed successfully, advance to small amounts of bland food (toast, soups, mashed potatoes, etc.) until you are able to resume a regular diet. Avoid aspirin, tobacco, and alcohol. If the vomiting worsens, if the problem that's making you vomit worsens, or if there's evidence of bleeding in the stomach (such as black, tarry stool, or bloody or black vomit), you should return immediately. Also, return if abdominal pain worsens or becomes localized to one area or you develop high fever. Call your doctor if you aren't improved in 24 hours. ANTINAUSEA MEDICATION: You have been given a medication to suppress nausea and vomiting. This type of medication can be given as a shot, pill, or suppository. It will usually last for many hours. Pills and shots usually last six to eight hours. For the typical illness, only one or two doses of the medication may be necessary. Mild lightheadedness may occur. This type of medicine can cause drowsiness. Do not drive or operate dangerous machinery while under its influence. Do not mix with alcohol. See your doctor at once if you have muscle spasms or tightness, or uncontrollable motions (particularly of the neck, mouth, or jaw). Persistent vomiting or severe lightheadedness should also be evaluated by the physician. REGLAN (METOCLOPRAMIDE): Reglan has been prescribed. This medicine affects the stomach and intestines. It can be used to treat nausea and vomiting, to prevent reflux of stomach acid up into the esophagus, or to increase the contractions of the stomach and intestines. It is often prescribed for esophagitis, and for paralysis of the stomach in diabetics. Reglan can cause either mild restlessness or drowsiness. You should contact the doctor at once if you become extremely restless, anxious, or cannot sleep, or if you develop uncontrollable motions of the lips, tongue, or jaw. Do not take alcohol with this medicine. Do not drive or operate machinery until you have been taking this medicine long enough to know how it affects you. Call the doctor if you develop abdominal pains, lightheadedness, black stool, or blood in the stool or vomitus. FOLLOW-UP CARE: If you have been referred to a physician for follow-up care, call the physicians office for an appointment as you were instructed or within the next two days. If you experience worsening or a significant change in your symptoms, notify the physician immediately or return to the Emergency Department at any time for re-evaluation. Prescriptions: Promethazine HCl [Phenergan 25 mg Tablet] 25 mg PO Q6H PRN #15 tablet PRN Reason: Forms: Elevated Blood Pressure, Return to Work Referrals: ZENA COYLE PA-C [Primary Care Provider] - Follow up in 3-5 days
[2018-12-01 20:02] LABS: A TYPE INFLUENZA AG POSITIVE (NEGATIVE); B INFLUENZA AG NEGATIVE (NEGATIVE)
[2018-12-01] MEDS ORDERED: PROMETHAZINE HCL 25 MG TABLET PO ONE (20:17)
== END 2018-12-01 20:26 | disposition home or self-care (01) ==
LOC: ER 19:03
DX: J11.1 Influenza due to unidentified influenza virus with other respiratory manifestations (principal); R51 Headache; R11.2 Nausea with vomiting, unspecified
CPT/HCPCS: 99283; 87804; S0119

== ENCOUNTER 2019-01-06 15:45 | Emergency (ER) | payer SELFPAY ==
[2019-01-06] MEDS ORDERED: IPRATROPIUM/ALBUTEROL 0.5-2.5 MG/3 ML AMPUL NEB ONE (16:59)
--- NOTE | 2019-01-06 18:09 | ER Document Report ---
HPI - HPI Time Seen by Provider: 01/06/19 16:26 Pain Level: 2 Notes: Patient is a 48-year-old female who presents with chief complaint of nausea, chills, fever, sore throat, cough and congestion that started yesterday. Patient reports she has vomited twice, she describes this vomit as sputum. She states that she has tried taking ibuprofen for her complaints with minimal relief. She states her most worrisome symptom is her sore throat. - CONSTITUTIONAL Constitutional: REPORTS: Fever, Chills - EENT EENT: REPORTS: Sore Throat - REPRODUCTIVE Reproductive: DENIES: : Past Medical History - General Information source: Patient - Social History Smoking Status: Current Every Day Smoker Family History: Reviewed & Not Pertinent Patient has suicidal ideation: No Patient has homicidal ideation: No Pulmonary Medical History: Reports: Hx Asthma, Hx Bronchitis Neurological Medical History: Reports: Hx Migraine Renal/ Medical History: Denies: Hx Peritoneal Dialysis Psychiatric Medical History: Reports: Hx Bipolar Disorder, Hx Schizophrenia Past Surgical History: Reports: Hx Section, Hx Gynecologic Surgery - Cervical Conization - Immunizations Hx Diphtheria, Pertussis, Tetanus Vaccination: Yes Hx Pneumococcal Vaccination: 10/29/10 Vertical Provider Document - CONSTITUTIONAL Notes: PHYSICAL EXAMINATION: GENERAL: Well-appearing, well-nourished and in no acute distress. HEAD: Atraumatic, normocephalic. EYES: Pupils equal round extraocular movements intact, conjunctiva are normal. ENT: Nares patent with clear rhinorrhea. Bilateral tonsillar swelling with exudates, no evidence of peritonsillar abscess. NECK: Normal range of motion LUNGS: No respiratory distress Musculoskeletal: Normal range of motion NEUROLOGICAL: Normal speech, normal gait. PSYCH: Normal mood, normal affect. SKIN: Warm, Dry, normal turgor, no rashes or lesions noted. - INFECTION CONTROL TRAVEL OUTSIDE OF THE [place] IN LAST 30 DAYS: No Course - Re-evaluation Re-evalutation: Patient is alert, oriented and speaking in clear sentences and has no difficulty swallowing. She does have bilateral tonsillar swelling with exudates however her rapid strep is negative. Explained to patient that throat culture is pending. Patient will be discharged home at this time with likely viral upper respiratory illness. Patient verbalizes understanding and agreement with plan. - Vital Signs Vital signs: Temp Pulse Resp BP Pulse Ox 98.0 F 80 14 117/84 98 03/11/19 15:55 01/06/19 15:55 01/06/19 15:55 01/06/19 15:55 01/06/19 15:55 Discharge - Discharge Clinical Impression: Viral upper respiratory illness Condition: Stable Disposition: HOME, SELF-CARE Additional Instructions: Your symptoms are most likely due to a viral infection it should resolve over the next 7-14 days. Take medications as prescribed. You should take moal-taz-suavrco guanfacine per bottle instructions to help thin the mucus. For nasal congestion: I would recommend that you get [id number] oxymetazoline also known is afrin. Use only per bottle instructions and be sure to never use this for more than 3 days if you can develop severe rebound congestion. You may also use tylenol or ibuprofen as needed for aches and thorat discomfort. Please be sure to drink plenty of fluids and get rest. Return to the emergency department he began having difficulty breathing, chest pain, persistent vomiting, or any other symptoms that are concerning to you. Prescriptions: Benzonatate [Tessalon Perles 100 mg Capsule] 100 mg PO Q8HP PRN #40 capsule PRN Reason: Ondansetron [Zofran Odt 4 mg Tablet] 1 - 2 tab PO Q4H PRN #15 tab.rapdis PRN Reason: For Nausea/Vomiting Prednisone [Deltasone 20 mg Tablet] 3 tab PO DAILY 5 Days #15 tablet Forms: Return to Work Referrals: HEATHER MARSH MD [Primary Care Provider] - Follow up as needed
[2019-01-06 18:17] VITALS: BP 121/83
== END 2019-01-06 18:17 | disposition home or self-care (01) ==
LOC: ER 15:45
DX: J06.9 Acute upper respiratory infection, unspecified (principal); B97.89 Other viral agents as the cause of diseases classified elsewhere; R50.9 Fever, unspecified; J02.9 Acute pharyngitis, unspecified; R05 Cough; R09.81 Nasal congestion; R11.2 Nausea with vomiting, unspecified; F17.200 Nicotine dependence, unspecified, uncomplicated; J45.909 Unspecified asthma, uncomplicated
CPT/HCPCS: 94640; 99283; 87070; 87880; 87077; J7620

== ENCOUNTER 2019-03-01 20:12 | Emergency (ER) | payer SELFPAY ==
--- NOTE | 2019-03-01 20:36 | ER Document Report ---
ED Medical Screen (RME) - General Chief Complaint: Abdominal Pain Stated Complaint: ABDOMINAL PAIN Time Seen by Provider: 03/01/19 20:31 Primary Care Provider: HEATHER MARSH MD [Primary Care Provider] - Follow up as needed Mode of Arrival: Ambulatory Information source: Patient TRAVEL OUTSIDE OF THE [place] IN LAST 30 DAYS: No - HPI Patient complains to provider of: ABDO PAIN, CONSTIPATION Notes: 03/01/19 20:35 Patient is here with complaints of lower abdominal pain and not able to have a bowel movement for the last several days. She has had nausea, no vomiting. No fever. Exam No distress, nontoxic-appearing. Patient will not sit down and she says it hurts too much to sit and she has rectal pain. Mid lower abdominal tenderness on limited upright triage room abdominal exam. Lungs clear and equal throughout. Heart sounds normal. Plan CBC, CMP, lipase, urine, , KUB. An initial examination was made on the patient as part of the triage process, and it was determined a more comprehensive evaluation was necessary. Initial labs were ordered and patient was transferred to another provider in the ED who assumed care and finished evaluation and plan. - Related Data Allergies/Adverse Reactions: No Known Allergies Allergy (Verified 03/01/19 20:19) Past Medical History Pulmonary Medical History: Reports: Hx Asthma, Hx Bronchitis Neurological Medical History: Reports: Hx Migraine Renal/ Medical History: Denies: Hx Peritoneal Dialysis Psychiatric Medical History: Reports: Hx Bipolar Disorder, Hx Schizophrenia Past Surgical History: Reports: Hx Section, Hx Gynecologic Surgery - Cervical Conization - Immunizations Hx Diphtheria, Pertussis, Tetanus Vaccination: Yes Doctor's Discharge - Discharge Referrals: HEATHER MARSH MD [Primary Care Provider] - Follow up as needed
[2019-03-01 21:36] LABS: ABSOLUTE BASOPHILS # (AUTO) 0.1 10^3/uL (0.0-0.2); ABSOLUTE EOSINOPHILS # (AUTO) 0.1 10^3/uL (0.0-0.6); ABSOLUTE LYMPHOCYTES (AUTO) 3.4 10^3/uL (0.5-4.7); ABSOLUTE MONOCYTES (AUTO) 0.8 10^3/uL (0.1-1.4); ABSOLUTE NEUT (AUTO) 3.9 10^3/uL (1.7-8.2); EOSINOPHILS % (AUTO) 1.7 % (0-6); HEMATOCRIT 39.3 % (36.0-47.0); HEMOGLOBIN 13.1 g/dL (12.0-15.5); LYMPHOCYTES % (AUTO) 41.2 % (13-45); MEAN CORPUSCULAR HEMOGLOBIN 29.3 pg (27.0-33.4); MEAN CORPUSCULAR HGB CONC 33.5 g/dL (32.0-36.0); MEAN CORPUSCULAR VOLUME 88 fl (80-97); MONOCYTES % (AUTO) 9.8 % (3-13); PLATELET COUNT 206 10^3/uL (150-450); RED BLOOD COUNT 4.48 10^6/uL (3.72-5.28); RED CELL DISTRIBUTION WIDTH 15.4 % (11.5-14.0); SEGMENTED NEUTROPHILS % (AUTO) 46.3 % (42-78); TOTAL CELLS COUNTED % (AUTO) 100 %; WHITE BLOOD COUNT 8.4 10^3/uL (4.0-10.5)
[2019-03-01 21:42] LABS: APPEARANCE,URINE SLIGHTLY-CLOUDY; BILIRUBIN,URINE NEGATIVE (NEGATIVE); COLOR,URINE YELLOW; GLUCOSE, URINE NEGATIVE (NEGATIVE); KETONES,URINE NEGATIVE (NEGATIVE); LEUKOCYTE ESTERASE,URINE TRACE (NEGATIVE); NITRITE,URINE NEGATIVE (NEGATIVE); PROTEIN,URINE NEGATIVE (NEGATIVE); URINE SPECIFIC GRAVITY 1.016; UROBILINOGEN,URINE NEGATIVE mg/dL (<2.0)
[2019-03-01 21:54] LABS: ALANINE AMINOTRANSFERASE 21 U/L (9-52); ALBUMIN 3.8 g/dL (3.5-5.0); ALKALINE PHOSPHATASE 60 U/L (38-126); ANION GAP 6 (5-19); ASPARTATE AMINO TRANSFERASE 18 U/L (14-36); BILIRUBIN,DIRECT 0.2 mg/dL (0.0-0.4); BILIRUBIN,TOTAL 0.2 mg/dL (0.2-1.3); BLOOD UREA NITROGEN 12 mg/dL (7-20); CARBON DIOXIDE 28 mmol/L (22-30); CHLORIDE 107 mmol/L (98-107); GLUCOSE 86 mg/dL (75-110); LIPASE 81.1 U/L (23-300); POTASSIUM 4.1 mmol/L (3.6-5.0); SODIUM 141.4 mmol/L (137-145); TOTAL PROTEIN 6.2 g/dL (6.3-8.2)
--- NOTE | 2019-03-01 22:19 | RADIOLOGY REPORT (SQ) ---
EXAM DESCRIPTION: XR ABDOMEN 1 VIEW (KUB) COMPLETED DATE/TME: 03/01/2019 20:34 CLINICAL HISTORY: 48 years, Female, LOWER ABDO PAIN, CONSTIPATION COMPARISON: None. NUMBER OF VIEWS: 2 TECHNIQUE: AP abdomen LIMITATIONS: None. FINDINGS: Evaluation for free air limited on a supine view. The bowel gas pattern is nonspecific. Moderate stool throughout colon. Osseous structures are grossly intact IMPRESSION: Nonspecific bowel gas pattern copyright 2010 [employer]- All Rights Reserved
--- NOTE | 2019-03-01 23:08 | ER Document Report ---
ED General - General Chief Complaint: Abdominal Pain Stated Complaint: ABDOMINAL PAIN Time Seen by Provider: 03/01/19 20:31 Primary Care Provider: HEATHER MARSH MD [Primary Care Provider] - Follow up as needed Mode of Arrival: Ambulatory Notes: Patient is a 48-year-old female presents to the emergency department for generalized abdominal pain for the last 3 days. Patient states she has been unable to have a bowel movement. States when she does have a bowel movement it is "tiny little balls." Patient states she did take a laxative [id number] today with no results. Patient states she has some lower abdominal pain and also pain right around her buttock region as though there is pressure. Patient's denying any dysuria or vaginal discharge. Patient states she has had constipation in the past and typically takes [id number]-zsy-[id number] remedies. Past medical history: None Medications: None Allergies: None Surgical history: None Patient is unsure of her last menstrual cycle TRAVEL OUTSIDE OF THE [place] IN LAST 30 DAYS: No - Related Data Allergies/Adverse Reactions: No Known Allergies Allergy (Verified 03/01/19 20:19) Past Medical History - General Information source: Patient - Social History Smoking Status: Former Smoker Frequency of alcohol use: None Drug Abuse: None Family History: Reviewed & Not Pertinent Patient has suicidal ideation: No Patient has homicidal ideation: No Pulmonary Medical History: Reports: Hx Asthma, Hx Bronchitis Neurological Medical History: Reports: Hx Migraine Renal/ Medical History: Denies: Hx Peritoneal Dialysis Psychiatric Medical History: Reports: Hx Bipolar Disorder, Hx Schizophrenia Past Surgical History: Reports: Hx Section, Hx Gynecologic Surgery - Cervical Conization - Immunizations Hx Diphtheria, Pertussis, Tetanus Vaccination: Yes Hx Pneumococcal Vaccination: 10/29/10 Review of Systems - Review of Systems Constitutional: denies: Fever EENT: No symptoms reported Cardiovascular: No symptoms reported Respiratory: No symptoms reported Gastrointestinal: See HPI Genitourinary: See HPI Female Genitourinary: See HPI Musculoskeletal: No symptoms reported Skin: No symptoms reported Hematologic/Lymphatic: No symptoms reported Neurological/Psychological: No symptoms reported Physical Exam - Vital signs Vitals: Temp Pulse Resp BP Pulse Ox 98.5 F 96 16 105/60 98 03/01/19 20:28 03/01/19 20:28 03/01/19 20:28 03/01/19 20:28 03/01/19 20:28 - Notes Notes: GENERAL: Alert, interacts well. No acute distress. HEAD: Normocephalic, atraumatic. EYES: Pupils equal, round, and reactive to light. Extraocular movements intact. ENT: Oral mucosa moist, tongue midline. NECK: Full range of motion. Supple. Trachea midline. LUNGS: Clear to auscultation bilaterally, no wheezes, rales, or rhonchi. No respiratory distress. HEART: Regular rate and rhythm. No murmur ABDOMEN: Soft, Non-distended. Bowel sounds present in all 4 quadrants. Generalized left lower abdominal pain noted. No right lower abdominal pain noted, no Sexton sign noted. EXTREMITIES: Moves all 4 extremities spontaneously. No edema, normal radial and dorsalis pedis pulses bilaterally. No cyanosis. BACK: no cervical, thoracic, lumbar midline tenderness. No saddle anesthesia, normal distal neurovascular exam. No CVA tenderness noted bilaterally NEUROLOGICAL: Alert and oriented x3. Normal speech. cranial nerves II through XII grossly intact PSYCH: Normal affect, normal mood. SKIN: Warm, dry, normal turgor. No rashes or lesions noted. Course - Re-evaluation Re-evalutation: 03/01/19 23:08 KUB X-Ray 03/01/19 20:34 IMPRESSION: Nonspecific bowel gas pattern copyright 2010 [employer]- All Rights Reserved Patient's labs show no signs of leukocytosis, no signs of anemia, no electrolyte abnormalities, urine shows no signs of infection, x-ray as noted above. Discussed with patient using a soapsuds enema in the emergency department. She states she has a lot of pressure around her rectum as though she has to defecate but cannot. Patient is wishing for a soapsuds enema at this time. Ordered, to be carried out by nursing staff. 03/02/19 00:53 Patient has had a large bowel movements x2 in the emergency room. States she no longer has any abdominal pain. Discussed increasing fiber intake and staying well-hydrated. Also discussed use of MiraLAX. Patient states she has that at home because her takes it. States she will take her 's. Patient's repeat abdominal exam elicits no pain in all 4 quadrants. Patient stable for discharge. - Vital Signs Vital signs: Temp Pulse Resp BP Pulse Ox 98.5 F 96 16 105/60 98 03/01/19 20:28 03/01/19 20:28 03/01/19 20:28 03/01/19 20:28 03/01/19 20:28 - Laboratory Result Diagrams: 03/01/19 21:10 03/01/19 21:10 Laboratory results interpreted by me: 03/01/19 03/01/19 03/01/19 21:10 21:10 21:10 RDW 15.4 H Total Protein 6.2 L Urine Blood SMALL H Ur Leukocyte Esterase TRACE H Discharge - Discharge Clinical Impression: Constipation Qualifiers: Constipation type: unspecified constipation type Qualified Code(s): K59.00 - Constipation, unspecified Condition: Stable Disposition: HOME, SELF-CARE Instructions: Constipation ([facility]) Additional Instructions: As we discussed you have been seen and treated in the emergency department for constipation. As we discussed you should increase your fluid intake and also fiber intake. You can also try mlpg-loa-nfmalcf MiraLAX. Please make sure you follow-up with your primary care provider in the next 24 to 48 hours and immediately return to the emergency room should you have any other concerns. Referrals: HEATHER MARSH MD [Primary Care Provider] - Follow up as needed
[2019-03-02 01:03] VITALS: BP 122/92
== END 2019-03-02 01:03 | disposition home or self-care (01) ==
LOC: ER 20:12
DX: K59.00 Constipation, unspecified (principal); J45.909 Unspecified asthma, uncomplicated; Z87.891 Personal history of nicotine dependence
CPT/HCPCS: 36415; 74018; 80053; 81001; 81025; 83690; 85025; 87086; 99284

== ENCOUNTER → 2019-04-18 | Outpatient (CLI) | payer OTHER ==
--- NOTE | 2019-04-18 13:41 | WOMENS IMAGING REPORT ---
EXAM DESCRIPTION: BILAT SCREENING MAMMO W/CAD COMPLETED DATE/TIME: 04/18/2019 11:38 am REASON FOR STUDY: Z12.31 ROUTINE BILATERAL SCREENING Z12.31 ENCNTR SCREEN MAMMOGRAM FOR MALIGNANT N EOPLASM OF SIDRA COMPARISON: 2012 EXAM PARAMETERS: Standard craniocaudal and mediolateral oblique views of each breast recorded using digital acquisition. Read with the assistance of CAD. .[facility] - [employer] Sizing Sponger Version 9.2 LIMITATIONS: None. FINDINGS: No suspicious masses, suspicious calcifications or architectural distortion. No areas of s uspicion. IMPRESSION: Negative MAMMOGRAM. BIRADS 1 BREAST DENSITY: c. The breasts are heterogeneously dense, which may obscure small masses. BIRAD: ASSESSMENT: 1 NEGATIVE RECOMMENDATION: ROUTINE SCREENING COMMENT: The patient has been notified of the results by letter per SA requirements. Additional no tification policies are in place for contacting patient with suspicious or incomplete findings. Quality ID #[id number]: The [employer] recommends an annual screening mammogram for women aged 40 years or over. This facility utilizes a reminder system to ensure that all patients receive reminder letters, and/or direct phone calls for appointments. This includes reminders for routine scr eening mammograms, diagnostic mammograms, or other Breast Imaging Interventions when appropriate. Th is patient will be placed in the appropriate reminder system. TECHNICAL DOCUMENTATION: FINDING NUMBER: (1) ASSESSMENT: (1) JOB ID: [id number] [employer]- All Rights Reserved Reading location - IP/workstation name: [email or web address]
== END ==
LOC: WI 10:50
PROVIDERS: ATTEND Physician Assistant
DX: Z12.31 Encounter for screening mammogram for malignant neoplasm of breast (principal)
CPT/HCPCS: 77067

== ENCOUNTER 2019-12-16 15:09 | Emergency (ER) | payer OTHER ==
[2019-12-16] MEDS ORDERED: KETOROLAC TROMETHAMINE INJ/PF 30 MG/1 ML SDV IM ONE (16:09)
--- NOTE | 2019-12-16 16:14 | ER Document Report ---
ED Medical Screen (RME) - General Chief Complaint: Chest Pain Stated Complaint: CHEST PAIN Time Seen by Provider: 12/16/19 16:05 Primary Care Provider: KENDALL KEENE PA-C [Primary Care Provider] - Follow up as needed Notes: Patient is a 49-year-old female presents emergency department with a chief complaint of right-sided chest pain. Patient reports around 245 this afternoon waking up with acute onset of chest pain. Patient reports it starts to the right side of the chest and radiates between her shoulder blades. Patient denies injury or fall. Patient denies any recent heavy lifting. Patient reports this is worse with position change and worse with deep breath. Patient denies recent cough, cold or flulike symptoms. Patient denies cardiac history. Patient does have a history of asthma but reports she has not had any symptoms recently. TRAVEL OUTSIDE OF THE [place] IN LAST 30 DAYS: No - Related Data Allergies/Adverse Reactions: No Known Allergies Allergy (Verified 12/16/19 16:03) Past Medical History - Social History Chew tobacco use (# tins/day): No Frequency of alcohol use: None Drug Abuse: None Pulmonary Medical History: Reports: Hx Asthma, Hx Bronchitis Neurological Medical History: Reports: Hx Migraine Renal/ Medical History: Denies: Hx Peritoneal Dialysis Psychiatric Medical History: Reports: Hx Bipolar Disorder, Hx Schizophrenia Past Surgical History: Reports: Hx Section, Hx Gynecologic Surgery - Cervical Conization - Immunizations Hx Diphtheria, Pertussis, Tetanus Vaccination: Yes Physical Exam - Vital signs Vitals: Temp Pulse Resp BP Pulse Ox 97.7 F 81 16 107/68 100 12/16/19 15:13 12/16/19 15:13 12/16/19 15:13 12/16/19 15:13 12/16/19 15:13 Course - Re-evaluation Re-evalutation: 12/16/19 16:13 Patient does have reproducible right-sided chest pain. Will obtain basic labs. Give anti-inflammatory. I have greeted and performed a rapid initial assessment of this patient. A comprehensive ED assessment and evaluation of the patient, analysis of test results and completion of the medical decision making process will be conducted by additional ED providers. - Vital Signs Vital signs: Temp Pulse Resp BP Pulse Ox 97.7 F 81 16 107/68 100 12/16/19 15:13 12/16/19 15:13 12/16/19 15:13 12/16/19 15:13 12/16/19 15:13 Doctor's Discharge - Discharge Referrals: KENDALL KEENE PA-C [Primary Care Provider] - Follow up as needed
[2019-12-16 16:43] LABS: HEMATOCRIT 42.6 % (36.0-47.0); MEAN CORPUSCULAR HEMOGLOBIN 29.1 pg (27.0-33.4); MEAN CORPUSCULAR HGB CONC 32.8 g/dL (32.0-36.0); MEAN CORPUSCULAR VOLUME 89 fl (80-97); PLATELET COUNT 234 10^3/uL (150-450); RED CELL DISTRIBUTION WIDTH 13.4 % (11.5-14.0); WHITE BLOOD COUNT 5.9 10^3/uL (4.0-10.5)
--- NOTE | 2019-12-16 16:51 | RADIOLOGY REPORT (SQ) ---
EXAM DESCRIPTION: CHEST 2 VIEWS COMPLETED DATE/TIME: 12/16/2019 4:41 pm REASON FOR STUDY: right sided chest pain COMPARISON: PA and lateral views of the chest from 04/17/2018. EXAM PARAMETERS: NUMBER OF VIEWS: Two views. TECHNIQUE: PA and lateral views of the chest were obtained.. RADIATION DOSE: NA LIMITATIONS: none FINDINGS: LUNGS AND PLEURA: No consolidation, pleural effusion or pneumothorax. MEDIASTINUM AND HILAR STRUCTURES: No mediastinal or hilar contour abnormality. HEART AND VASCULAR STRUCTURES: The cardiac silhouette and pulmonary vasculature are within normal ellis its. BONES: No acute findings. HARDWARE: None in the chest. OTHER: No other finding. IMPRESSION: No acute cardiopulmonary process. TECHNICAL DOCUMENTATION: JOB ID: [id number] 2010 [employer]- All Rights Reserved Reading location - IP/workstation name: [email or web address]
[2019-12-16 17:02] LABS: ALBUMIN 3.5 g/dL (3.5-5.0); ALKALINE PHOSPHATASE 56 U/L (38-126); ANION GAP 6 (5-19); ASPARTATE AMINO TRANSFERASE 37 U/L (14-36); BILIRUBIN,DIRECT 0.2 mg/dL (0.0-0.4); BILIRUBIN,TOTAL 0.3 mg/dL (0.2-1.3); BLOOD UREA NITROGEN 14 mg/dL (7-20); CARBON DIOXIDE 26 mmol/L (22-30); CHLORIDE 107 mmol/L (98-107); GLUCOSE 74 mg/dL (75-110); POTASSIUM 4.1 mmol/L (3.6-5.0); TOTAL PROTEIN 6.3 g/dL (6.3-8.2)
[2019-12-16 17:20] LABS: ABSOLUTE LYMPHOCYTES# (MANUAL) 3.4 10^3/uL (0.5-4.7); BASOPHILS % (MANUAL) 0 % (0-2); EOSINOPHILS % (MANUAL) 3 % (0-6); LYMPHOCYTES % (MANUAL) 58 % (13-45); MONOCYTES % (MANUAL) 17 % (3-13); SEGMENTED NEUTROPHILS % (MAN) 22 % (42-78); TOTAL CELLS COUNTED 100
[2019-12-16 17:21] LABS: PLATELET COMMENT ADEQUATE; RBC MORPHOLOGY COMMENT NORMO-CYTIC/CHROMIC
[2019-12-16] MEDS ORDERED: ACETAMINOPHEN 325 MG TABLET PO ONE (18:34)
[2019-12-16 18:49] VITALS: BP 105/67
--- NOTE | 2019-12-16 18:53 | EKG REPORT ---
SEVERITY:- OTHERWISE NORMAL ECG - SINUS RHYTHM LEFT AXIS DEVIATION : Confirmed by: Sasha Vazquez 16-Dec-2019 18:52:58
--- NOTE | 2019-12-17 14:44 | ER Document Report ---
Entered by JORGE SMALL SCRIBE 12/16/19 [id number] Acting as scribe for:DAWSON RESENDIZ, ED General - General Chief Complaint: Chest Pain Stated Complaint: CHEST PAIN Time Seen by Provider: 12/16/19 16:05 Primary Care Provider: KENDALL KEENE PA-C [PHYSICIAN [employer] DESIGNER] - Follow up as needed TRAVEL OUTSIDE OF THE [place] IN LAST 30 DAYS: No - Related Data Allergies/Adverse Reactions: No Known Allergies Allergy (Verified 12/16/19 16:03) Past Medical History - Social History Smoking Status: Current Every Day Smoker Chew tobacco use (# tins/day): No Frequency of alcohol use: None Drug Abuse: None Family History: Reviewed & Not Pertinent Patient has suicidal ideation: No Patient has homicidal ideation: No Pulmonary Medical History: Reports: Hx Asthma, Hx Bronchitis Neurological Medical History: Reports: Hx Migraine Renal/ Medical History: Denies: Hx Peritoneal Dialysis Psychiatric Medical History: Reports: Hx Bipolar Disorder, Hx Schizophrenia Past Surgical History: Reports: Hx Section, Hx Gynecologic Surgery - Cervical Conization - Immunizations Hx Diphtheria, Pertussis, Tetanus Vaccination: Yes Hx Pneumococcal Vaccination: 10/29/10 Physical Exam - Vital signs Vitals: Temp Pulse Resp BP Pulse Ox 97.7 F 81 16 107/68 100 12/16/19 15:13 12/16/19 15:13 12/16/19 15:13 12/16/19 15:13 12/16/19 15:13 Course - Re-evaluation Re-evalutation: 12/16/19 18:28 MDM 49 year old female awoke this pm and noted pain - sharp - in the center of her chest. Moves toward right shoulder and is worse with movment. She is better here some after toradol. Smoker but this is only risk. Nonexertional pain that came on at rest. Additionally EKG is Nl and she has no h/o clotting disorder or family history of this. This along with sat of 100% and resp rate 16 make PE very unlikely although it was considered in differential as was Ptx and pneumonia and anemia. She clearly has chest wall pain here and we will treat for that. - Vital Signs Vital signs: Temp Pulse Resp BP Pulse Ox 97.7 F 81 16 107/68 100 12/16/19 15:13 12/16/19 15:13 12/16/19 15:13 12/16/19 15:13 12/16/19 15:13 - Laboratory Result Diagrams: 12/16/19 16:24 12/16/19 16:24 Laboratory results interpreted by me: 12/16/19 12/16/19 16:24 16:24 Seg Neuts % (Manual) 22 L Lymphocytes % (Manual) 58 H Monocytes % (Manual) 17 H Abs Neuts (Manual) 1.3 L Glucose 74 L AST 37 H - EKG Interpretation by Me EKG shows normal: Sinus rhythm Rate: Normal - NSR NL [place] [address] elevation or depression my interpretation Rhythm: NSR Discharge - Discharge Clinical Impression: Chest wall pain Condition: Good Disposition: HOME, SELF-CARE Instructions: Anti-Inflammatory Medication ([facility]), Chest Wall Pain ([facility]) Additional Instructions: See your doctor in follow up. Take the medicine as directed. Return here for any problems or any concerns. Referrals: KENDALL KEENE PA-C [PHYSICIAN [employer] DESIGNER] - Follow up as needed I personally performed the services described in the documentation, reviewed and edited the documentation which was dictated to the scribe in my presence, and it accurately records my words and actions.
== END 2019-12-16 18:50 | disposition home or self-care (01) ==
LOC: ER 15:09
DX: R07.89 Other chest pain (principal); F17.200 Nicotine dependence, unspecified, uncomplicated
CPT/HCPCS: 93005; 36415; 85025; 80053; 71046; 93010; J1885

== ENCOUNTER 2020-07-23 12:06 | Emergency (ER) | payer OTHER ==
[2020-07-23 12:57] LABS: ABSOLUTE EOSINOPHILS # (AUTO) 0.1 10^3/uL (0.0-0.6); ABSOLUTE LYMPHOCYTES (AUTO) 4.9 10^3/uL (0.5-4.7); ABSOLUTE MONOCYTES (AUTO) 1.4 10^3/uL (0.1-1.4); ABSOLUTE NEUT (AUTO) 8.8 10^3/uL (1.7-8.2); BASOPHILS % (AUTO) 0.3 % (0-2); EOSINOPHILS % (AUTO) 0.5 % (0-6); HEMATOCRIT 42.1 % (36.0-47.0); HEMOGLOBIN 13.8 g/dL (12.0-15.5); LYMPHOCYTES % (AUTO) 32.2 % (13-45); MEAN CORPUSCULAR HEMOGLOBIN 28.8 pg (27.0-33.4); MEAN CORPUSCULAR HGB CONC 32.8 g/dL (32.0-36.0); MEAN CORPUSCULAR VOLUME 88 fl (80-97); MONOCYTES % (AUTO) 9.2 % (3-13); PLATELET COUNT 198 10^3/uL (150-450); RED BLOOD COUNT 4.79 10^6/uL (3.72-5.28); SEGMENTED NEUTROPHILS % (AUTO) 57.8 % (42-78); TOTAL CELLS COUNTED % (AUTO) 100 %; WHITE BLOOD COUNT 15.3 10^3/uL (4.0-10.5)
[2020-07-23 13:04] LABS: VENOUS BLOOD BASE EXCESS -3.2 mmol/L; VENOUS BLOOD HCO3 23.2 mmol/L (20-32); VENOUS BLOOD PCO2 46.4 mmHg (35-63); VENOUS BLOOD PH 7.32 (7.30-7.42)
[2020-07-23 13:07] LABS: ALBUMIN 4.4 g/dL (3.5-5.0); ALKALINE PHOSPHATASE 74 U/L (38-126); ANION GAP 11 (5-19); ASPARTATE AMINO TRANSFERASE 21 U/L (14-36); BILIRUBIN,DIRECT 0.3 mg/dL (0.0-0.4); BILIRUBIN,TOTAL 0.6 mg/dL (0.2-1.3); BLOOD UREA NITROGEN 9 mg/dL (7-20); CALCIUM 9.5 mg/dL (8.4-10.2); CARBON DIOXIDE 22 mmol/L (22-30); CHLORIDE 106 mmol/L (98-107); CREATINE KINASE 61 U/L (30-135); GLUCOSE 80 mg/dL (75-110); POTASSIUM 3.6 mmol/L (3.6-5.0); TOTAL PROTEIN 7.5 g/dL (6.3-8.2)
[2020-07-23 13:22] LABS: TROPONIN I 0.031 ng/mL
--- NOTE | 2020-07-23 13:23 | RADIOLOGY REPORT (SQ) ---
EXAM DESCRIPTION: CHEST SINGLE VIEW IMAGES COMPLETED DATE/TIME: 07/23/2020 1:10 pm REASON FOR STUDY: chest pain/SOB COMPARISON: 12/16/2019 EXAM PARAMETERS: NUMBER OF VIEWS: One view. TECHNIQUE: Single frontal radiographic view of the chest acquired. RADIATION DOSE: NA LIMITATIONS: None. FINDINGS: LUNGS AND PLEURA: No opacities, masses or pneumothorax. No pleural effusion. MEDIASTINUM AND HILAR STRUCTURES: No masses. Contour normal. HEART AND VASCULAR STRUCTURES: Heart normal in size. Normal vasculature. BONES: No acute findings. HARDWARE: None in the chest. OTHER: No other significant finding. IMPRESSION: NO ACUTE RADIOGRAPHIC FINDING IN THE CHEST. TECHNICAL DOCUMENTATION: JOB ID: [id number] 2010 [employer]- All Rights Reserved Reading location - IP/workstation name: [email or web address]
[2020-07-23 13:25] LABS: CREATINE KINASE MB < 0.22 ng/mL (<4.55)
--- NOTE | 2020-07-23 15:40 | ER Document Report ---
ED General - General Chief Complaint: Asthma Exacerbation Stated Complaint: DIFFICULTY BREATHING Time Seen by Provider: 07/23/20 14:21 Primary Care Provider: WALE SCHMIDT MD [Primary Care Provider] - Follow up as needed TRAVEL OUTSIDE OF THE [place] IN LAST 30 DAYS: No - HPI Notes: Chief complaint: Asthma flare History of present illness: 49-year-old female with lifelong history of asthma transported here via EMS for 3-day worsening flare of her asthma. Producing yellow sputum. Dyspnea on exertion becoming much worse today. No fever. Patient says she has been having some intermittent chills at night. She smokes occasional cigarettes. She is never been admitted to ICU or intubated. She is a home health aide. Says that she had a COVID test 2 months ago which was negative. She denies any discrete known exposure to COVID but works in [employer]. EMS team gave IV Solu-Medrol and multiple nebulizers in route. - Related Data Allergies/Adverse Reactions: No Known Allergies Allergy (Verified 12/16/19 16:03) Past Medical History - General Information source: Patient, Emergency Med Personnel, [facility] Records - Social History Smoking Status: Current Some Day Smoker Family History: Reviewed & Not Pertinent Pulmonary Medical History: Reports: Hx Asthma, Hx Bronchitis Neurological Medical History: Reports: Hx Migraine Renal/ Medical History: Denies: Hx Peritoneal Dialysis Psychiatric Medical History: Reports: Hx Bipolar Disorder, Hx Depression, Hx Schizophrenia Past Surgical History: Reports: Hx Section, Hx Gynecologic Surgery - Cervical Conization - Immunizations Hx Diphtheria, Pertussis, Tetanus Vaccination: Yes Hx Pneumococcal Vaccination: 10/29/10 Review of Systems - Review of Systems Notes: Constitutional: As per HPI. HENT: Negative for sore throat. Eyes: Negative for visual changes. Cardiovascular: Negative for chest pain. Respiratory: As per HPI. Gastrointestinal: Negative for abdominal pain, vomiting or diarrhea. Genitourinary: Negative for dysuria. Musculoskeletal: Negative for back pain. Skin: Negative for rash. Neurological: Negative for headaches, weakness or numbness. 10 point ROS negative except as marked above and in HPI. Physical Exam - Vital signs Vitals: Resp Pulse Ox 25 H 100 07/23/20 12:07 07/23/20 12:07 - Notes Notes: GENERAL: Well-developed well-nourished female approximately stated age appearing in no acute distress. SKIN: Good turgor no rashes. HEAD: Normocephalic atraumatic. EYES: PERRLA. EOMI. Conjunctivae and sclerae clear. EARS: CANALS AND TMS CLEAR. NOSE: CLEAR. MOUTH: Moist mucosa. Good dentition. No stridor or edema. No drooling. NECK: Supple. No masses or thyromegaly. No adenopathy. Carotids 2+ without bruits. No JVD. BACK: Symmetrical without tenderness. CHEST: Respirations unlabored. Breath sounds clear and symmetrical. HEART: Regular rhythm. No murmur gallop or rub. ABDOMEN: Soft nontender without masses, organomegaly or rebound. Bowel sounds normally active. No bruits. GENITALIA: Deferred. EXTREMITIES: No edema. No calf tenderness. Cap refill less than 1.5 seconds. Dorsalis pedis and posterior tibial pulses 3+ and symmetrical. NEUROLOGICAL: GCS 15. Alert and oriented x3. Fluent speech. Cranial nerves II through XII intact. Sensorimotor and cerebellar normal. Normal tone. PSYCHIATRIC: Appropriate affect. Course - Re-evaluation Re-evalutation: 07/23/20 15:27 I saw the patient sometime after her arrival here and by the time of my exam she was completely clear. Chest x-ray shows no infiltrates. Her labs are remarkable for white count of 15,000. Her chest x-ray shows no infiltrates. She was essentially clear by the time I saw her. 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 In the meantime I am going to send her out on oral prednisone and doxycycline and encouraged her to stop smoking. She was self isolate at home and follow-up with her primary physician Dr. Schmidt within the next 3 to 5 days. 07/23/20 15:43 - Vital Signs Vital signs: Temp Pulse Resp BP Pulse Ox 98.4 F 12 111/72 100 07/23/20 12:08 07/23/20 14:27 07/23/20 14:29 07/23/20 14:27 - Laboratory Result Diagrams: 07/23/20 12:22 07/23/20 12:22 Laboratory results interpreted by me: 07/23/20 12:22 WBC 15.3 H Absolute Neuts (auto) 8.8 H Absolute Lymphs (auto) 4.9 H Discharge - Discharge Clinical Impression: Asthma flare Qualifiers: Asthma severity: unspecified severity Asthma persistence: intermittent Qualified Code(s): J45.21 - Mild intermittent asthma with (acute) exacerbation Acute bronchitis Qualifiers: Bronchitis organism: unspecified organism Qualified Code(s): J20.9 - Acute bronchitis, unspecified Condition: Stable Disposition: HOME, SELF-CARE Instructions: Asthma ([facility]), Stop Smoking ([facility]) Prescriptions: Prednisone [Deltasone 20 mg Tablet] 2 tab PO DAILY 5 Days tablet Doxycycline Monohydrate 100 mg PO BID #20 capsule Forms: Return to Work Referrals: WALE SCHMIDT MD [Primary Care Provider] - Follow up as needed
[2020-07-23 15:56] VITALS: BP 123/78
--- NOTE | 2020-07-23 21:37 | EKG REPORT ---
SEVERITY:- ABNORMAL ECG - SINUS RHYTHM LEFT ANTERIOR FASCICULAR BLOCK : Confirmed by: Estefani Becker MD 23-Jul-2020 21:36:45
== END 2020-07-23 15:56 | disposition home or self-care (01) ==
LOC: ER 12:06
DX: J45.21 Mild intermittent asthma with (acute) exacerbation (principal); J20.9 Acute bronchitis, unspecified; R68.83 Chills (without fever); F17.210 Nicotine dependence, cigarettes, uncomplicated; Z20.828 Contact with and (suspected) exposure to other viral communicable diseases
CPT/HCPCS: 93005; 99285; 36415; 82553; 82550; 85025; 87635; 80053; 84484; 82803; 71045; 93010; C9803

== ENCOUNTER 2020-09-02 07:25 | Emergency (ER) | payer OTHER ==
[2020-09-02] MEDS ORDERED: HYDROCODONE/ACETAMINOPHEN 5-325 MG TABLET PO ONE (07:42)
[2020-09-02] MEDS ORDERED: PREDNISONE 20 MG TABLET PO ONE (07:42)
[2020-09-02] MEDS ORDERED: ALBUTEROL SULFATE 0.083% NEB 2.5 MG/3 ML AMPUL NEB ONE (07:42)
[2020-09-02] MEDS ORDERED: IBUPROFEN 600 MG TABLET PO ONE (07:43)
--- NOTE | 2020-09-02 08:50 | ER Document Report ---
ED General - General Chief Complaint: Asthma Exacerbation Stated Complaint: CHEST PAIN/ASTHMA ATTACK Time Seen by Provider: 09/02/20 07:35 Primary Care Provider: WALE SCHMIDT MD [Primary Care Provider] - Follow up as needed Mode of Arrival: Ambulatory Information source: Patient TRAVEL OUTSIDE OF THE [place] IN LAST 30 DAYS: No - HPI Notes: Patient presents with right upper chest pain. She states it is a sharp sensation. It radiates across her upper part of her chest. It is worse with deep breaths and better with. She states she had a several times before when she has problems with her asthma. Patient denies any cough cold or congestion. She has had some shortness of breath with the pain. No vomiting or diarrhea. - Related Data Allergies/Adverse Reactions: No Known Allergies Allergy (Verified 09/02/20 07:32) Past Medical History - General Information source: Patient - Social History Smoking Status: Current Every Day Smoker Frequency of alcohol use: None Drug Abuse: None Family History: Reviewed & Not Pertinent Pulmonary Medical History: Reports: Hx Asthma, Hx Bronchitis Neurological Medical History: Reports: Hx Migraine Renal/ Medical History: Denies: Hx Peritoneal Dialysis Psychiatric Medical History: Reports: Hx Bipolar Disorder, Hx Depression, Hx Schizophrenia Past Surgical History: Reports: Hx Section, Hx Gynecologic Surgery - Cervical Conization - Immunizations Hx Diphtheria, Pertussis, Tetanus Vaccination: Yes Hx Pneumococcal Vaccination: 10/29/10 Review of Systems - Review of Systems Constitutional: denies: Chills, Fever Cardiovascular: Chest pain. denies: Palpitations Respiratory: Short of breath. denies: Cough -: Yes All other systems reviewed and negative Physical Exam - Vital signs Vitals: Temp Pulse Resp BP Pulse Ox 98.2 F 77 22 H 100/77 100 09/02/20 07:32 09/02/20 07:32 09/02/20 07:32 09/02/20 07:32 09/02/20 07:32 Interpretation: Normal - General General appearance: Appears well, Alert - HEENT Head: Normocephalic, Atraumatic Eyes: Normal Pupils: PERRL - Respiratory Respiratory status: No respiratory distress Chest status: Nontender Breath sounds: Normal Chest palpation: Tender - tender diffusely - Cardiovascular Rhythm: Regular Heart sounds: Normal auscultation Murmur: No - Abdominal Inspection: Normal Distension: No distension Bowel sounds: Normal Tenderness: Nontender Organomegaly: No organomegaly - Back Back: Normal, Nontender - Extremities General upper extremity: Normal inspection, Nontender, Normal color, Normal ROM, Normal temperature General lower extremity: Normal inspection, Nontender, Normal color, Normal ROM, Normal temperature, Normal weight bearing. No: Last's sign - Neurological Neuro grossly intact: Yes Cognition: Normal Orientation: AAOx4 [place] Coma Scale Eye Opening: Spontaneous [place] Coma Scale Verbal: Oriented [place] Coma Scale Motor: Obeys Commands [place] Coma Scale Total: 15 Speech: Normal Motor strength normal: LUE, RUE, LLE, RLE Sensory: Normal - Psychological Associated symptoms: Normal affect, Normal mood - Skin Skin Temperature: Warm Skin Moisture: Dry Skin Color: Normal Course - Vital Signs Vital signs: Temp Pulse Resp BP Pulse Ox 98.2 F 77 18 123/83 99 09/02/20 07:32 09/02/20 07:32 09/02/20 07:46 09/02/20 07:46 09/02/20 07:46 - Diagnostic Test Radiology reviewed: Image reviewed, Reports reviewed - EKG Interpretation by Me EKG shows normal: Sinus rhythm - 68 Rate: Normal - 68 Rhythm: NSR [place]/QRS: LAHB/LAFB Discharge - Discharge Clinical Impression: Pleurisy Condition: Stable Disposition: HOME, SELF-CARE Instructions: Pleurisy ([facility]) Prescriptions: Hydrocodone/Acetaminophen [Camby 5-325 mg Tablet] 1 tab PO Q6 PRN 3 Days #12 tablet PRN Reason: Forms: Return to Work Referrals: WALE SCHMIDT MD [Primary Care Provider] - Follow up in 3-5 days
[2020-09-02 08:55] VITALS: BP 126/86
--- NOTE | 2020-09-02 09:07 | RADIOLOGY REPORT (SQ) ---
EXAM DESCRIPTION: CHEST 2 VIEWS IMAGES COMPLETED DATE/TIME: 09/02/2020 8:06 am REASON FOR STUDY: cp COMPARISON: 07/23/2020 EXAM PARAMETERS: NUMBER OF VIEWS: two views TECHNIQUE: Digital Frontal and Lateral radiographic views of the chest acquired. RADIATION DOSE: NA LIMITATIONS: none FINDINGS: LUNGS AND PLEURA: No opacities, masses or pneumothorax. No pleural effusion. MEDIASTINUM AND HILAR STRUCTURES: No masses or contour abnormalities. HEART AND VASCULAR STRUCTURES: Heart normal size. No evidence for failure. BONES: No acute findings. HARDWARE: None in the chest. OTHER: No other significant finding. IMPRESSION: NO ACUTE RADIOGRAPHIC FINDING IN THE CHEST. TECHNICAL DOCUMENTATION: JOB ID: [id number] 2010 [employer] / [employer]- All Rights Reserved Reading location - IP/workstation name: [email or web address]
--- NOTE | 2020-09-02 18:11 | EKG REPORT ---
SEVERITY:- ABNORMAL ECG - SINUS RHYTHM LEFT ANTERIOR FASCICULAR BLOCK : Confirmed by: Jt Lan MD 02-Sep-2020 18:11:06
== END 2020-09-02 08:55 | disposition home or self-care (01) ==
LOC: ER 07:25
DX: R09.1 Pleurisy (principal); R06.02 Shortness of breath; F17.200 Nicotine dependence, unspecified, uncomplicated
CPT/HCPCS: 93005; 94640; 99284; 71046; 93010; J7512; J7613

== ENCOUNTER 2020-11-10 13:30 | Emergency (ER) | payer SELFPAY ==
[2020-11-10 13:37] VITALS: BP 109/83
[2020-11-10] MEDS ORDERED: LIDOCAINE 2% VISCOUS SOLN 15 ML UDCUP PO ONE (13:52)
--- NOTE | 2020-11-10 13:54 | ER Document Report ---
HPI - HPI Time Seen by Provider: 11/10/20 13:49 Notes: Otherwise healthy 42-year-old female presenting to the emergency department chief complaint of dental pain. Patient reports pain around tooth #30 and 31. She reports pain ongoing for the last several days. She states she has not been able to see her dentist as they cannot get her an appointment for several weeks. She denies any fever or chills. She denies any difficulty swallowing. - ROS Systems Reviewed and Negative: Yes All other systems reviewed and negative - CONSTITUTIONAL Notes: Dental pain - REPRODUCTIVE Reproductive: DENIES: : Past Medical History - General Information source: Patient - Social History Smoking Status: Never Smoker Frequency of alcohol use: None Drug Abuse: None Family History: Reviewed & Not Pertinent Pulmonary Medical History: Reports: Hx Asthma, Hx Bronchitis Neurological Medical History: Reports: Hx Migraine Renal/ Medical History: Denies: Hx Peritoneal Dialysis Psychiatric Medical History: Reports: Hx Bipolar Disorder, Hx Depression, Hx Schizophrenia Past Surgical History: Reports: Hx Section, Hx Gynecologic Surgery - Cervical Conization - Immunizations Hx Diphtheria, Pertussis, Tetanus Vaccination: Yes Hx Pneumococcal Vaccination: 10/29/10 Vertical Provider Document - CONSTITUTIONAL Notes: PHYSICAL EXAMINATION: GENERAL: Well-appearing, well-nourished and in no acute distress. HEAD: Atraumatic, normocephalic. EYES: Pupils equal round extraocular movements intact, conjunctiva are normal. ENT: Nares patent, erythema surrounding tooth #30 and 31, no henry abscess, no trismus. NECK: Normal range of motion LUNGS: No respiratory distress Musculoskeletal: Normal range of motion NEUROLOGICAL: Normal speech, normal gait. PSYCH: Normal mood, normal affect. SKIN: Warm, Dry, normal turgor, no rashes or lesions noted. - INFECTION CONTROL TRAVEL OUTSIDE OF THE [place] IN LAST 30 DAYS: No Course - Re-evaluation Re-evalutation: Presentation is most consistent with likely an infected tooth. Airway is patent. Vitals within normal limits. Patient is able swallow without any difficulty. There is no significant facial swelling. No evidence of Edward angina, apical abscess, or airway obstruction. Patient will be started on antibiotics. I've instructed to follow-up with dentistry as earliest ability for definitive management. At this time will discharge with return precautions and follow-up recommendations. Verbal discharge instructions given a the bedside and opportunity for questions given. Medication warnings reviewed. Patient is in agreement with this plan and has verbalized understanding of return precautions and the need for primary care follow-up in the next 24-72 hours. - Vital Signs Vital signs: Temp Pulse Resp BP Pulse Ox 98.3 F 77 20 109/83 98 11/10/20 13:35 11/10/20 13:35 11/10/20 13:35 11/10/20 13:35 11/10/20 13:35 - Laboratory Results Critical Laboratory Results Reviewed: No Critical Results - Radiology Results Critical Radiology Results Reviewed: No Critical Results Discharge - Discharge Clinical Impression: Dental abscess Condition: Stable Disposition: HOME, SELF-CARE Additional Instructions: You have been seen for dental pain. It is very important that you follow-up with a dentist for definitive care. Please return if you develop fever greater than 101, swelling in your face, vomiting, difficulty breathing or swallowing, or any other symptoms that are concerning to you. For pain you should take ibuprofen 800 mg every 8 hours as needed. Prescriptions: Hydrocodone/Acetaminophen [Bethesda 5-325 mg Tablet] 1 tab PO Q6HP PRN #8 tablet PRN Reason: Penicillin V Potassium [Penicillin Vk 500 mg Tablet] 500 mg PO BID #20 tablet Forms: Return to Work Referrals: WALE SCHMIDT MD [Primary Care Provider] - Follow up as needed
== END 2020-11-10 14:14 | disposition home or self-care (01) ==
LOC: ER 13:30
DX: K04.7 Periapical abscess without sinus (principal); K08.89 Other specified disorders of teeth and supporting structures; J45.909 Unspecified asthma, uncomplicated
CPT/HCPCS: 99284; J3490